=== PATIENT | male | born 1965 | race Caucasian/White ===

== ENCOUNTER 2020-08-21 09:52 | Emergency (ER) | payer BC ==
[2020-08-21] MEDS ORDERED: Famotidine 20 MG/2 ML SDV IVPUSH ONE (09:54)
[2020-08-21] MEDS ORDERED: Aspirin 81 MG Tab.Chew CHEW ONE (09:54)
[2020-08-21] MEDS ORDERED: Metoprolol Tartrate 5 MG/5 ML SDV IVPUSH ONE (09:54)
[2020-08-21] MEDS ORDERED: Ticagrelor 90 MG Tab PO ONE (09:54)
--- NOTE | 2020-08-21 09:54 | EDM.PDOC ---
ED HPI GENERAL MEDICAL PROBLEM - General Chief Complaint: Chest Pain Stated Complaint: chest pain Time Seen by Provider: 08/21/20 09:54 Source of Information: Reports: Patient, Old Records ([facility] chart/EMR) History Limitations: Reports: No Limitations - History of Present Illness INITIAL COMMENTS - FREE TEXT/NARRATIVE: The patient drove himself to the emergency room from work after he started having 10/10 retrosternal chest pressure with radiation to the right shoulder and arm associated with mild to moderate dizziness and diaphoresis with symptoms reoccurring at about 7:30 AM this morning with 2 subsequent episodes, including immediately prior to arrival. Patient has been having similar type symptoms since about 6 PM on 08/17 with patient using OTC NSAIDs and his normal pain medications for the above symptoms. He does deny any excessive NSAID use. The symptoms have been occurring at least 12 times per day lasting for about 30-60 minutes. The patient denies any heart flutter, orthostasis, orthopnea, paresthesias, recent decreased exercise tolerance, or any other anginal-type symptoms. No recent history of abdominal pain, heartburn, nausea, diarrhea, melena, gross hematochezia, or any food intolerance, including fatty foods, etc. with normal bowel movement earlier this morning. He denies any gross hematuria, colic, or the UTI symptoms. The patient denies any chest pain/pressure, heart flutter, dizziness, orthostasis, orthopnea, diaphoresis, paresthesias, recent decreased exercise tolerance, or any other anginal-type symptoms. His chest discomfort did improve to 2/10 in our emergency room prior to initiation of any medical therapy with patient not taking any medications prior to arrival. Onset: Gradual Onset Date: 08/17/20 Onset Time: 18:00 Duration: Intermittent, Improving Location: Reports: Chest, Upper Extremity, Right, Radiates to (As above). Denies: Head, Face, Neck, Abdomen, Back, Pelvis, Upper Extremity, Left Quality: Reports: Pressure Severity: Severe Improves with: Reports: None Worsens with: Reports: None Context: Reports: Other (As above). Denies: Sick Contact, Trauma Associated Symptoms: Reports: Chest Pain, Diaphoresis. Denies: Confusion, Cough, Fever/Chills, Headaches, Loss of Appetite, Malaise, Nausea/Vomiting, Rash, Seizure, Shortness of Breath, Syncope, Weakness Treatments [employer]: Reports: Other Medication(s) (As above but not today, although he did take his morning medications and denies medication noncompliance) - Related Data Allergies Allergy/AdvReac Type Severity Reaction Status Date / Time Iodinated Contrast Media Allergy Vomiting Verified 08/21/20 09:53 Home Meds: Home Meds Omeprazole [Prilosec] 20 mg PO DAILY 04/24/14 [History] QUEtiapine Fumarate [Quetiapine Fumarate] 300 mg PO BEDTIME 04/24/14 [History] Hydrocodone/Acetaminophen [Hydrocodone-Acetamin 7.5-325] 1 tab PO Q4HR PRN 08/21/20 [History] Levothyroxine Sodium [Synthroid] 1 tab PO BEDTIME 08/21/20 [History] atorvaSTATin [Lipitor] 1 tab PO BEDTIME 08/21/20 [History] lisinopriL [Lisinopril] 1 tab PO BEDTIME 08/21/20 [History] traMADol HCl [Tramadol HCl] 1 tab PO Q6HR PRN 08/21/20 [History] Past Medical History Cardiovascular History: Reports: Arrhythmia, High Cholesterol, Hypertension, Other (See Below) Other Cardiovascular History: Dyslipidemia. PVCs. Borderline incomplete right bundle branch block. Mild thoracic outlet syndrome on 01/25/1987. Respiratory History: Reports: Intubation, Previous, Pulmonary Fibrosis. Denies: Asthma, COPD, Intubation, Difficult Gastrointestinal History: Reports: Cholelithiasis, Chronic Constipation, Diverticulosis, GERD, Hepatitis, Helicobacter Pylori, PUD, Other (See Below). D enies: GI Bleed, Pancreatitis Other Gastrointestinal History: Peptic ulcer disease, GERD, and duodenitis with previously treated H. pylori infection after positive finding on 05/25/2002. Umbilical hernia. Moderate LFTs elevation and hyperbilirubinemia on 04/24/2014 with cholecystectomy as below. Genitourinary History: Reports: Hydronephrosis, Renal Calculus, Other (See Below) Other Genitourinary History: Benign bilateral nephrolithiasis including urolithiasis on the right side on 03/01/2002 and on the left side on 08/03/2015 with secondary moderate hydronephrosis. Spermatocele on 03/25/2002. Musculoskeletal History: Reports: Arthritis, Back Pain, Chronic, Fracture, Neck Pain, Chronic, Osteoarthritis, Other (See Below) Other Musculoskeletal History: C5-6 disc prolapse on 02/21/2006 with lumbar spinal fusion as below. Right hand fourth proximal distal phalangeal fracture on 04/20/1996. Right ankle/fibula fracture on 10/10/1989. Psychiatric History: Reports: Addiction, Anxiety, Depression, OCD, Suicidal Ideation, Other (See Below) Other Psychiatric History: Previous history of suicidal ideation with outpatient alcohol treatment. Chronic narcotic and Ultram use secondary to chronic pain syndrome from his neck and back pain. Endocrine/Metabolic History: Reports: Hypokalemia, Hypothyroidism, Other (See Below). Denies: Diabetes, Type I, Diabetes, Type II, Diabetes Mellitus, Type 3c , IDDM, Obesity/BMI 30+ Other Endocrine/Metabolic History: Borderline hyperglycemia. Bilateral gynecomastia since April 1990 with negative biopsies as below. Hematologic History: Reports: Anemia, Other (See Below) Other Hematologic History: Macrocytic anemia. - Infectious Disease History Infectious Disease History: Reports: Chicken Pox, Shingles (Right-sided herpes zoster ophthalmicus in July 2001.). Denies: Novel Coronavirus - Past Surgical History Respiratory Surgical History: Reports: Other (See Below) Other Respiratory Surgeries/Procedures: Transaxillary excision of the first right rib on 06/07/1987. GI Surgical History: Reports: Appendectomy, Cholecystectomy, EGD, Other (See Below) Other GI Surgeries/Procedures: Laparoscopic cholecystectomy in 2013. EGD on 11/13/1999 and 09/03/1994. Appendectomy in April 1999, although the patient denied this on 04/25/2002. Hemorrhoidectomy in 1987 and 08/21/2006. Male Surgical History: Reports: Renal Calculus, Ureteral Stent, Vasectomy, Other (See Below) Other Male Surgeries/Procedures: Multiple bilateral ureteral stone extractions including on the right side on 03/01/2002. Vasectomy in August 1996. Left breast biopsy for benign disease on 05/13/1990 and right breast in July 2006. Neurological Surgical History: Reports: Discectomy, Laminectomy, Lumbar Spine, Spinal Fusion, Other (See Below). Denies: C-Spine, Sacral Spine, Thoracic Spine, Vertebroplasty Other Neurological Surgeries/Procedures: Spinal fusion (ASF/PSF) of L2-L5 on 08/12/2006. Musculoskeletal Surgical History: Reports: ORIF, Other (See Below) Other Musculoskeletal Surgeries/Procedures:: ORIF of the right fibular/ankle fracture in October 11, 1989. ORIF of right fourth finger fracture on 04/20/1996. - Past Imaging History Past Imaging History: Reports: Angiography (08/22/2003.), CAT Scan (CT/arthrogram of the right shoulder and on 04/13/1991. CT of the abdomen and pelvis with contrast on 06/07/2009. CT of the abdomen and pelvis with stone protocol on 03/10/2015 and 10/03/2010.), HIDA Scan (08/11/2006), MRI (MRI of the right shoulder on 03/17/1991. MRI of the lumbar, sacral, and thoracic spines on 03/06/2006. MRI of the lumbar spine on 07/01/2016. MRI of the C-spine on 02/21/2006.), Stress Testing (Dobutamine Cardiolite stress test on 07/24/2006. Cardiolite stress test on 08/11/2003.), Ultrasound (Renal ultrasound on 08/03/2015, 02/22/2015 and 07/23/2011. Gallbladder ultrasound on 04/27/2014, 05/03/2009, and 08/11/1996.), Upper GI X-Ray/Series (01/23/1996) Social & Family History - Family History Cardiac: Reports: Arrhythmia, Bypass, CAD, Hypertension, RI, Other (See Below) Other Cardiac Family History: Father with fatal RI at age 48. Brother with RI in his 40s with CABG required. Another brother with a congenital septal defect with no surgery conducted. Paternal uncles x4 with MIs in their 60s 2 of them fatal in nature. Paternal aunt x4 with RI in their 70s 1 fatal nature. Brother with fatal RI at age 51. Another brother with WPW. Hypertension in mother, father, sister, and brothers x5. Respiratory: Reports: Asthma, Other (See Below) Other Respiratory Family Hisory: Brother with asthma. GI: Reports: Cholelithiasis, Other (See Below) Other GI Family History: Brother with cholelithiasis. : Reports: Renal Calculus, Other (See Below) Other Family History: Urolithiasis and brothers x2. Neurological: Reports: Other (See Below) Other Neurological Family History: Brother with mental deficit/mild mental retardation. Endocrine/Metabolic: Reports: Diabetes, Type I, Diabetes, type II, Hypothyroidism, IDDM, Obesity/MBI 30+, Other (See Below) Other Endocrine/Metabolic Family History: Brother with obesity. Brother with AODM. Mother with IDDM. Maternal niece with type I IDDM. Hypothyroidism in mother, sister, and brothers x4. Oncologic: Reports: Hodgkin's Lymphoma, Other (See Below) Other Oncologic Family History: Brother with Hodgkin's disease in his 30s. - Tobacco Use Tobacco Use Status *Q: Current Every Day Tobacco User Tobacco Use Within Last Twelve Months: Cigarettes Years of Tobacco use: 43 Packs/Tins Daily: 0.5 Packs/Tins Daily Comment: Started smoking at age 12 with maximum use of 1 pack/day. Used Tobacco, but Quit: No Smoking Cessation Information Provided To Patient: No (To be provided by accepting providers) Second Hand Smoke Exposure: No Second Hand Smoke Education Provided: No - Alcohol Use Alcohol Use History: Yes Days Per Week of Alcohol Use: 0 Number of Drinks Per Day Comment: Previous history of alcohol abuse for 5 years with outpatient treatment and no alcohol use since November 1997. Alcohol Use in Last Twelve Months: No - Living Situation & Occupation Living situation: Reports: (07/08/2006, 2 children), with Family (Brother with mental deficit) Occupation: Employed ([employer]) ED ROS GENERAL - Review of Systems Review Of Systems: Comprehensive ROS is negative, except as noted in HPI. ED EXAM, GENERAL - Physical Exam Exam: See Below Exam Limited By: No Limitations General Appearance: Alert, WD/WN, No Apparent Distress, Anxious (Moderate) Eye Exam: Bilateral Eye: EOMI, Normal Inspection (No vertigo or nystagmus), PERRL Ears: Normal External Exam, Normal Canal, Hearing Grossly Normal, Normal TMs Nose: Normal Inspection, Normal Mucosa, No Blood Throat/Mouth: Normal Inspection, Normal Lips, Normal Teeth, Normal Gums, Normal Oropharynx, Normal Voice, No Airway Compromise. No: Dysphagia, Perioral Cyanosis Head: Atraumatic, Normocephalic. No: Facial Swelling, Facial Tenderness, Sinus Tenderness Neck: Normal Inspection, Supple, Non-Tender, Full Range of Motion. No: Carotid Bruit, Lymphadenopathy (L), Lymphadenopathy (R), Thyromegaly Respiratory/Chest: No Respiratory Distress, Lungs Clear, Normal Breath Sounds, No Accessory Muscle Use, Chest Non-Tender. No: Pleural Rub, Retractions Cardiovascular: Normal Peripheral Pulses, Regular Rate, Rhythm, No Edema, No Gallop, No JVD, No Murmur, No Rub. No: Gallop/S3, Gallop/S4, Friction Rub Peripheral Pulses: 2+: Radial (L), Radial (R), Dorsalis Pedis (L), Dorsalis Pedis (R) GI/Abdominal: Normal Bowel Sounds, Soft, Non-Tender, No Organomegaly, No Distention, No Abnormal Bruit, No Mass. No: Guarding (Male) Exam: Deferred Rectal (Males) Exam: Deferred Back Exam: Normal Inspection, Full Range of Motion. No: CVA Tenderness (L), CVA Tenderness (R), Muscle Spasm Extremities: Normal Inspection, Normal Range of Motion, Non-Tender, No Pedal Edema, Normal Capillary Refill. No: Lovely's Sign Neurological: Alert, Oriented, CN II-XII Intact, Normal Cognition, Normal Gait, Normal Reflexes (Negative Babinski's), No Motor/Sensory Deficits Psychiatric: Anxious (Moderate), Depressed Mood (Borderline) Skin Exam: Warm, Dry, Intact, Normal Color, No Rash. No: Diaphoretic, Wound/Incision Lymphatic: No Adenopathy #1 Interpretation EKG Date: 08/21/20 Time: 09:53 Rhythm: NSR Rate (Beats/Min): 87 [place]: Normal (Neutral) P-Wave: Present QRS: Normal (0.08 seconds with resolution of previous borderline incomplete right bundle branch block) ST-T: Normal QT: Normal IN/PQ Interval: 0.14 seconds representing short IN interval with no delta waves noted. Moderate poor R wave progression in the anterior leads. Comparison: Change From Previous EKG (As above with no recent EKG for comparison) EKG Interpretation Comments: 1. No acute ischemic changes 2. Short IN interval #2 Interpretation EKG Date: 08/21/20 Time: 11:10 Rhythm: Other (Sinus bradycardia) Rate (Beats/Min): 58 [place]: Normal (Neutral) P-Wave: Enlarged (New biphasic P waves from earlier EKG today) QRS: Normal ST-T: Other (Downsloping ST depressions with T wave inversions in leads III and beginning in aVF new from earlier EKG at 9:53 AM today as above) IN/PQ Interval: 0.14-second troponin is stable Short IN interval with no delta waves noted. Mild poor wave progression in the anterior leads Comparison: Change From Previous EKG (As above) EKG Interpretation Comments: 1. Beginning inferior wall cardiac ischemia 2. Left atrial enlargement 3. Short IN interval 4. Sinus bradycardia Course - Vital Signs Last Recorded V/S: Last Vital Signs Temp 36.3 C 08/21/20 12:00 Pulse 66 08/21/20 12:00 Resp 17 08/21/20 12:00 BP 149/93 H 08/21/20 12:00 Pulse Ox 100 08/21/20 12:00 Vital Signs - 24 hr 08/21/20 08/21/20 08/21/20 09:52 10:13 10:16 Temperature [ 36.6 C Oral] Temperature [ 36.6 C Temporal] Pulse, Peripheral Pulse, 87 72 Peripheral [ Right Pulse Oximetry] Respiratory 16 18 Rate Blood Pressure 155/106 H Blood Pressure 155/106 H 92/55 L [Right Upper Arm] O2 Sat by Pulse 100 99 Oximetry 08/21/20 08/21/20 08/21/20 10:17 10:18 10:28 Temperature [ Oral] Temperature [ Temporal] Pulse, 79 Peripheral Pulse, 63 62 Peripheral [ Right Pulse Oximetry] Respiratory 19 20 Rate Blood Pressure 155/106 H Blood Pressure 88/58 L 127/80 [Right Upper Arm] O2 Sat by Pulse 99 99 Oximetry 08/21/20 08/21/20 08/21/20 10:32 10:45 11:00 Temperature [ Oral] Temperature [ Temporal] Pulse, Peripheral Pulse, 62 61 60 Peripheral [ Right Pulse Oximetry] Respiratory 20 15 19 Rate Blood Pressure Blood Pressure 127/80 148/92 H 185/99 H [Right Upper Arm] O2 Sat by Pulse 99 100 100 Oximetry 08/21/20 08/21/20 08/21/20 11:15 11:30 11:32 Temperature [ Oral] Temperature [ Temporal] Pulse, Peripheral Pulse, 59 L 66 62 Peripheral [ Right Pulse Oximetry] Respiratory 18 17 17 Rate Blood Pressure Blood Pressure 203/106 H 196/89 H 159/100 H [Right Upper Arm] O2 Sat by Pulse 100 100 100 Oximetry 08/21/20 12:00 Temperature [ Oral] Temperature [ 36.3 C Temporal] Pulse, Peripheral Pulse, 66 Peripheral [ Right Pulse Oximetry] Respiratory 17 Rate Blood Pressure Blood Pressure 149/93 H [Right Upper Arm] O2 Sat by Pulse 100 Oximetry - Orders/Labs/Meds Orders: Active Orders 24 hr Category Date Time Status Cardiac Monitoring [RC] . DIRECTED Care 08/21/20 09:54 Active EKG Documentation Completion [RC] ASDIRECTED Care 08/21/20 09:54 Active EKG Documentation Completion [RC] ASDIRECTED Care 08/21/20 11:06 Active Oxygen Therapy, ED [RC] CONTINUOUS Care 08/21/20 09:54 Active Peripheral IV Care [RC] . DIRECTED Care 08/21/20 09:54 Active Peripheral IV Care [RC] . DIRECTED Care 08/21/20 11:09 Active Pulse Oximetry [RC] CONTINUOUS Care 08/21/20 09:54 Active Up With Assistance [RC] PFP Care 08/21/20 09:54 Active Vital Signs [RC] PFP Care 08/21/20 09:54 Active Nothing per Oral Now Diet [DIET] Diet 08/21/20 Breakfast Active Chest 1V Frontal [CR] Stat Exams 08/21/20 09:54 Taken Heparin Sodium/0.45% NaCl [Heparin 25,000 Units in 1/2 Med 08/21/20 11:15 Active NS 500 ML] 500 ml IV TITRATE Nitroglycerin [Nitrostat] Med 08/21/20 09:55 Stat 0.4 mg SL ONETIME STA Nitroglycerin/D5W [Nitroglycerin 25 MG/D5W 250 ML] Med 08/21/20 11:30 Active 25 mg in 250 ml IV TITRATE Sodium Chloride 0.9% [Normal Saline] 1,000 ml Med 08/21/20 11:15 Active IV ASDIRECTED Sodium Chloride 0.9% [Saline Flush] Med 08/21/20 09:54 Active 10 ml FLUSH ASDIRECTED PRN Sodium Chloride 0.9% [Saline Flush] Med 08/21/20 11:09 Active 10 ml FLUSH ASDIRECTED PRN Obtain Past Medical Record [OM.PC] Urgent Oth 08/21/20 09:54 Active Peripheral IV Insertion Adult [OM.PC] Routine Oth 08/21/20 11:09 Ordered Peripheral IV Insertion Adult [OM.PC] Stat Oth 03/29/21 09:54 Ordered Resuscitation Status Stat Resus Stat 08/21/20 09:54 Ordered Medication Orders Heparin Sodium/Sodium Chloride (Heparin 25,000 Units In 1/2 Ns 500 Ml) 500 mls @ 21.864 mls/hr IV TITRATE ALPHONSE; Protocol Last Admin: 08/21/20 11:36 Dose: 12 units/kg/hr, 21.864 mls/hr Documented by: HARSHAD Cosigned by: NELDA Sodium Chloride (Normal Saline) 1,000 mls @ 30 mls/hr IV ASDIRECTED ALPHONSE Nitroglycerin/Dextrose (Nitroglycerin 25 Mg/D5w 250 Ml) 25 mg in 250 mls @ 6 mls/hr IV TITRATE ALPHONSE Last Admin: 08/21/20 11:26 Dose: 10 mcg/min, 6 mls/hr Documented by: HARSHAD Nitroglycerin (Nitroglycerin 0.4 Mg Tab.Sl) 0.4 mg SL ONETIME STA Stop: 08/22/20 09:56 Last Admin: 08/21/20 10:16 Dose: 0.4 mg Documented by: HARSHAD Sodium Chloride (Sodium Chloride 0.9% 10 Ml Syringe) 10 ml FLUSH ASDIRECTED PRN PRN Reason: Keep Vein Open Last Admin: 08/21/20 10:51 Dose: 10 ml Documented by: Admin: 08/21/20 10:44 Dose: 10 ml Documented by: Admin: 08/21/20 10:20 Dose: 10 ml Documented by: Admin: 08/21/20 10:19 Dose: 10 ml Documented by: HARSHAD Sodium Chloride (Sodium Chloride 0.9% 10 Ml Syringe) 10 ml FLUSH ASDIRECTED PRN PRN Reason: Keep Vein Open Labs: Laboratory Tests 08/21/20 08/21/20 08/21/20 Range/Units 10:10 10:10 10:10 WBC 6.2 (4.0-10.2) K/uL RBC 3.81 L (4.33-5.41) M/uL Hgb 13.4 (13.1-16.8) g/dL Hct 39.1 (39.0-49.0) % MCV 102.6 H (84.0-98.0) fL MCH 35.2 H (28.2-33.3) pg MCHC 34.3 (31.7-36.0) g/dL RDW 13.0 (11.2-14.1) % Plt Count 223 (150-350) K/uL Neut % (Auto) 60.8 (45.0-80.0) % Lymph % (Auto) 29.8 (10.0-50.0) % [place] % (Auto) 5.7 (2.0-14.0) % Eos % (Auto) 3.4 (0.0-5.0) % Baso % (Auto) 0.3 (0.0-2.0) % Neut # (Auto) 3.75 (1.40-7.00) K/uL Lymph # (Auto) 1.84 (0.50-3.50) K/uL [place] # (Auto) 0.35 (0.00-1.00) K/uL Eos # (Auto) 0.21 (0.00-0.50) K/uL Baso # (Auto) 0.02 (0.00-0.20) K/uL PT 9.7 (9.5-12.0) SEC INR 1.0 APTT 23.4 L (24.5-32.8) SEC D-Dimer, Quantitative < 100 (0-400) ng/mL Sodium (136-145) mmol/L Potassium (3.5-5.1) mmol/L Chloride (98-107) mmol/L Carbon Dioxide (21.0-32.0) mmol/L BUN (7-18) mg/dL Creatinine (0.51-1.17) mg/dL Est Cr Clr Drug Dosing Estimated GFR (MDRD) mL/min Glucose (70-99) mg/dL Lactic Acid (0.4-2.0) mmol/L Uric Acid (2.6-7.2) mg/dL Calcium (8.5-10.1) mg/dL Magnesium (1.8-2.4) mg/dL Total Bilirubin (0.2-1.0) mg/dL AST (15-37) U/L ALT (12-78) U/L Alkaline Phosphatase (46-116) IU/L Creatine Kinase (26-308) U/L Creatine Kinase Index (0.0-2.5) % CK-MB (CK-2) (0.00-3.60) ng/mL Troponin I (0.000-0.056) ng/mL NT-Pro-B Natriuret Pep (0-125) pg/mL Total Protein (6.4-8.2) g/dL Albumin (3.4-5.0) g/dL TSH, Ultra Sensitive (0.358-3.740) mIU/mL SARS-CoV-2 RNA (NANCY) (NEGATIVE) 08/21/20 08/21/20 08/21/20 Range/Units 10:10 10:10 10:10 WBC (4.0-10.2) K/uL RBC (4.33-5.41) M/uL Hgb (13.1-16.8) g/dL Hct (39.0-49.0) % MCV (84.0-98.0) fL MCH (28.2-33.3) pg MCHC (31.7-36.0) g/dL RDW (11.2-14.1) % Plt Count (150-350) K/uL Neut % (Auto) (45.0-80.0) % Lymph % (Auto) (10.0-50.0) % [place] % (Auto) (2.0-14.0) % Eos % (Auto) (0.0-5.0) % Baso % (Auto) (0.0-2.0) % Neut # (Auto) (1.40-7.00) K/uL Lymph # (Auto) (0.50-3.50) K/uL [place] # (Auto) (0.00-1.00) K/uL Eos # (Auto) (0.00-0.50) K/uL Baso # (Auto) (0.00-0.20) K/uL PT (9.5-12.0) SEC INR APTT (24.5-32.8) SEC D-Dimer, Quantitative (0-400) ng/mL Sodium 140 (136-145) mmol/L Potassium 3.9 (3.5-5.1) mmol/L Chloride 103 (98-107) mmol/L Carbon Dioxide 26.0 (21.0-32.0) mmol/L BUN 16 (7-18) mg/dL Creatinine 1.13 (0.51-1.17) mg/dL Est Cr Clr Drug Dosing TNP Estimated GFR (MDRD) > 60 mL/min Glucose 158 H (70-99) mg/dL Lactic Acid 1.9 (0.4-2.0) mmol/L Uric Acid 5.2 (2.6-7.2) mg/dL Calcium 9.0 (8.5-10.1) mg/dL Magnesium 1.6 L (1.8-2.4) mg/dL Total Bilirubin 0.4 (0.2-1.0) mg/dL AST 20 (15-37) U/L ALT 27 (12-78) U/L Alkaline Phosphatase 73 (46-116) IU/L Creatine Kinase 128 (26-308) U/L Creatine Kinase Index 2.0 (0.0-2.5) % CK-MB (CK-2) 2.60 (0.00-3.60) ng/mL Troponin I 0.071 H* (0.000-0.056) ng/mL NT-Pro-B Natriuret Pep 143 H (0-125) pg/mL Total Protein 7.1 (6.4-8.2) g/dL Albumin 3.8 (3.4-5.0) g/dL TSH, Ultra Sensitive 4.188 H (0.358-3.740) mIU/mL SARS-CoV-2 RNA (NANCY) Negative (NEGATIVE) Meds: Medications Generic Name Dose Route Start Last Admin Trade Name Buck PRN Reason Stop Dose Admin Heparin Sodium/Sodium Chloride 500 mls @ 21.864 mls/hr 08/21/20 11:15 08/21/20 11:36 Heparin 25,000 Units In 1/2 Ns 500 Ml IV 12 units/kg/hr TITRATE ALPHONSE 21.864 mls/hr Administration Protocol 12 UNITS/KG/HR Sodium Chloride 1,000 mls @ 30 mls/hr 08/21/20 11:15 Normal Saline IV ASDIRECTED ALPHONSE Nitroglycerin/Dextrose 25 mg in 250 mls @ 6 mls/hr 08/21/20 11:30 08/21/20 11:26 Nitroglycerin 25 Mg/D5w 250 Ml IV 10 mcg/min TITRATE ALPHONSE 6 mls/hr Administration 10 MCG/MIN Nitroglycerin 0.4 mg 08/21/20 09:55 08/21/20 10:16 Nitroglycerin 0.4 Mg Tab.Sl SL 08/22/20 09:56 0.4 mg ONETIME STA Administration Sodium Chloride 10 ml 08/21/20 09:54 08/21/20 10:51 Sodium Chloride 0.9% 10 Ml Syringe FLUSH 10 ml ASDIRECTED PRN Administration Keep Vein Open Sodium Chloride 10 ml 08/21/20 11:09 Sodium Chloride 0.9% 10 Ml Syringe FLUSH ASDIRECTED PRN Keep Vein Open Discontinued Medications Generic Name Dose Route Start Last Admin Trade Name Freq PRN Reason Stop Dose Admin Aspirin 324 mg 08/21/20 09:54 08/21/20 10:15 Aspirin 81 Mg Tab.Chew CHEW 08/21/20 09:55 324 mg ONETIME ONE Administration Diazepam 2.5 mg 08/21/20 10:26 08/21/20 10:42 Diazepam 10 Mg/2 Ml Syringe IVPUSH 08/21/20 10:27 2.5 mg ONETIME ONE Administration Famotidine 40 mg 08/21/20 09:54 08/21/20 10:18 Famotidine 20 Mg/2 Ml Sdv IVPUSH 08/21/20 09:55 40 mg ONETIME ONE Administration Heparin Sodium (Porcine) 4,000 units 08/21/20 11:07 08/21/20 11:16 Heparin Sodium 5,000 Units/Ml Vial IVPUSH 08/21/20 11:08 4,000 units ONETIME ONE Administration Lactated Ringer's 1,000 mls @ 999 mls/hr 08/21/20 10:25 08/21/20 10:32 Ringers, Lactated IV 08/21/20 11:25 999 mls/hr .BOLUS ONE Administration Metoprolol Tartrate 2.5 mg 08/21/20 09:54 08/21/20 10:18 Metoprolol Tartrate 5 Mg/5 Ml Sdv IVPUSH 08/21/20 09:55 2.5 mg ONETIME ONE Administration Morphine Sulfate 1 mg 08/21/20 10:26 08/21/20 10:42 Morphine 2 Mg/Ml Syringe IVPUSH 08/21/20 10:27 1 mg ONETIME ONE Administration Morphine Sulfate 2 mg 08/21/20 11:09 08/21/20 11:16 Morphine 2 Mg/Ml Syringe IVPUSH 08/21/20 11:10 2 mg ONETIME ONE Administration Ondansetron HCl 4 mg 08/21/20 10:26 08/21/20 10:42 Ondansetron 4 Mg/2 Ml Sdv IVPUSH 08/21/20 10:27 4 mg ONETIME ONE Administration Ticagrelor 180 mg 08/21/20 09:54 08/21/20 10:17 Ticagrelor 90 Mg Tab PO 08/21/20 09:55 180 mg ONETIME ONE Administration - Radiology Interpretation Free Text/Narrative:: cardiac monitor initially showed normal sinus rhythm with heart rate in the 80s with no ectopy or arrhythmia. Improved heart rate in the 60s to 70s after IV Lopressor therapy with no ectopy or arrhythmia Chest x-ray, portable, shows mild pulmonary obstructive disease with bilateral lobe atelectasis with no evidence of cardiomegaly, CHF, pulmonary infiltrates, pneumothorax, etc. Departure - Departure Time of Disposition: 12:18 Disposition: DC/Tfer to Acute Hospital 02 Reason for Transfer *Q: Other (Cardiology consultation by accepting providers) Condition: Fair Clinical Impression: Non-STEMI (non-ST elevated myocardial infarction), Shortened IN interval, PVCs (premature ventricular contractions), Dyslipidemia, Macrocytic anemia, Mixed anxiety depressive disorder, Hypothyroidism (acquired), Hypomagnesemia, Peptic reflux disease, Tobacco abuse counseling Hypertension Qualifiers: Hypertension type: essential hypertension Qualified Code(s): I10 - Essential (primary) hypertension Osteoarthritis Qualifiers: Osteoarthritis location: multiple joints Osteoarthritis type: primary Qualified Code(s): M89.49 - Other hypertrophic osteoarthropathy, multiple sites Referrals: Jennifer [place] PA-C [Primary Care Provider] - Forms: ED Department Discharge, Interfacility Transfer EMTALA Additional Instructions: Ambulance transfer to [place] as below Sepsis Event Note (ED) - Focused Exam Vital Signs: Vital Signs Temp Temp Pulse Pulse Resp BP BP 08/21/20 12:00 36.3 C 66 17 149/93 H 08/21/20 11:32 62 17 159/100 H 08/21/20 11:30 66 17 196/89 H 08/21/20 11:15 59 L 18 203/106 H 08/21/20 11:00 60 19 185/99 H 08/21/20 10:45 61 15 148/92 H 08/21/20 10:32 62 20 127/80 08/21/20 10:28 62 20 127/80 08/21/20 10:18 79 155/106 H 08/21/20 10:17 63 19 88/58 L 08/21/20 10:16 155/106 H 08/21/20 10:13 72 18 92/55 L 08/21/20 09:52 36.6 C 36.6 C 87 16 155/106 H Pulse Ox 08/21/20 12:00 100 08/21/20 11:32 100 08/21/20 11:30 100 08/21/20 11:15 100 08/21/20 11:00 100 08/21/20 10:45 100 08/21/20 10:32 99 08/21/20 10:28 99 08/21/20 10:18 08/21/20 10:17 99 08/21/20 10:16 08/21/20 10:13 99 08/21/20 09:52 100 - Problem List & Annotations (1) Non-STEMI (non-ST elevated myocardial infarction) SNOMED Code(s): 24919712 Code(s): I21.4 - NON-ST ELEVATION (NSTEMI) MYOCARDIAL INFARCTION Status: Acute Priority: High Onset Date: 08/21/20 Annotation/Comment:: Telephone consultation at 11:[address] Joshua, emergency room physician/hospitalist at [facility] in [place], who does accept the patient for direct admission, with no further treatment recommendations given. Ambulance transfer with radio interference trouble shooter accompaniment. Note initial unstable angina and uncontrolled hypertension in our emergency room, however patient was chest pain-free with significantly improved blood pressures and stable clinical exam and vitals prior to transfer. Chest pain protocol was initiated immediately upon patient's arrival to the emergency room. Secondary to unstable angina EKG was repeated indicating newly developing inferior wall non-STEMI with initial normal EKG. Note positive troponin I with only minimally elevated BNP and no clinical evidence of significant CHF. Note aggressive medical therapy required in our facility including initiation of IV nitroglycerin, which he did tolerate well, and IV sodium heparin infusion as per non-STEMI protocol. [place] work excuse to be faxed to his employer with a blank [employer] work excuse form to be faxed to [facility] in [place]. (2) Hypertension SNOMED Code(s): 66241975 Code(s): I10 - ESSENTIAL (PRIMARY) HYPERTENSION Status: Chronic Priority: High Annotation/Comment:: Patient very hypertensive upon arrival to our emergency room likely secondary to threatening non-STEMI. Note hypotensive episode with systolic blood pressures in the 80s after 1 sublingual nitroglycerin tablet and 2.5 mg of Lopressor were given as per chest pain protocol. Patient was bolused with 1 L of lactated Ringer's with overall excellent results, however the patient became hypotensive once again shortly thereafter. Note that the initial dose of IV morphine was held until patient's hypotension improved with patient tolerating this medication well despite previous history of possible distant pruritus without rash with this medication. Chest pain completely resolved after second dose of IV morphine at 2 mg, which the patient still tolerated well. Blood pressure significantly improved after initiation of IV nitroglycerin infusion as above. Qualifiers: Hypertension type: essential hypertension Qualified Code(s): I10 - Essential (primary) hypertension (3) Dyslipidemia SNOMED Code(s): 136753730 Code(s): E78.5 - HYPERLIPIDEMIA, UNSPECIFIED Status: Chronic Priority: Medium Annotation/Comment:: Currently under therapy. Note additional history of borderline hyperglycemia. Consider of lipid profile and glycosylated hemoglobin by accepting providers. (4) Hypomagnesemia SNOMED Code(s): 845640899 Code(s): E83.42 - HYPOMAGNESEMIA Status: Acute Priority: Medium Onset Date: 08/21/20 Annotation/Comment:: Consider correction by accepting providers. (5) Hypothyroidism (acquired) SNOMED Code(s): 849225601 Code(s): E03.9 - HYPOTHYROIDISM, UNSPECIFIED Status: Chronic Priority: Medium Annotation/Comment:: Currently under therapy with mildly increased TSH today. Patient denies medication noncompliance. Further dosage adjustment by accepting providers. (6) Macrocytic anemia SNOMED Code(s): 95492996 Code(s): D53.9 - NUTRITIONAL ANEMIA, UNSPECIFIED Status: Chronic Priority: Medium Annotation/Comment:: Long history. No evidence of current alcohol use with history of alcohol abuse in the past. Consider work-up by accepting providers, including vitamin B12 level, thiamine level, folic acid level, etc. (7) Mixed anxiety depressive disorder SNOMED Code(s): 305704249 Code(s): F41.8 - OTHER SPECIFIED ANXIETY DISORDERS Status: Chronic Priority: Medium Annotation/Comment:: Moderate control based on today's evaluation. Note distant history of alcohol abuse as above with no current intoxication. Emotional support was provided. Continue to observe closely by accepting and regular providers. (8) Osteoarthritis SNOMED Code(s): 133443358 Code(s): M19.90 - UNSPECIFIED OSTEOARTHRITIS, UNSPECIFIED SITE Status: Chronic Priority: Medium Annotation/Comment:: Stable by history with chronic narcotic medication use, including earlier this morning. Note chronic neck and low back pain. Qualifiers: Osteoarthritis location: multiple joints Osteoarthritis type: primary Qualified Code(s): M89.49 - Other hypertrophic osteoarthropathy, multiple sites (9) PVCs (premature ventricular contractions) SNOMED Code(s): 90807850 Code(s): I49.3 - VENTRICULAR PREMATURE DEPOLARIZATION Status: Chronic Priority: Medium Annotation/Comment:: Distant history of PVCs and incomplete right bundle branch block, which were not present during today's evaluation. No significant arrhythmia noted in today's evaluation. Note short IN interval with no delta waves, however positive family history of WPW syndrome as above. (10) Shortened IN interval SNOMED Code(s): 45212507 Code(s): R94.31 - ABNORMAL ELECTROCARDIOGRAM [ECG] [EKG] Status: Acute Priority: Medium Onset Date: 08/21/20 Annotation/Comment:: As above (11) Peptic reflux disease SNOMED Code(s): 450917729 Code(s): K21.9 - GASTRO-ESOPHAGEAL REFLUX DISEASE WITHOUT ESOPHAGITIS Status: Chronic Priority: Medium Annotation/Comment:: No current abdominal complaints despite recent NSAID use. High-dose IV Pepcid was given as GI prophylaxis with no evidence of acute GI bleed. (12) Tobacco abuse counseling SNOMED Code(s): 098251379, 673522493, 417852434 Code(s): Z71.6 - TOBACCO ABUSE COUNSELING Status: Chronic Priority: Medium Annotation/Comment:: Tobacco cessation once again strongly encouraged with the patient to be provided tobacco cessation information by accepting providers. - Problem List Review Problem List Initiated/Reviewed/Updated: Yes - My Orders Last 24 Hours: My Active Orders 08/21/20 Breakfast Nothing per Oral Now Diet [DIET] 08/21/20 09:54 Cardiac Monitoring [RC] . DIRECTED EKG Documentation Completion [RC] ASDIRECTED Oxygen Therapy, ED [RC] CONTINUOUS Peripheral IV Care [RC] . DIRECTED Pulse Oximetry [RC] CONTINUOUS Up With Assistance [RC] PFP Vital Signs [RC] PFP Chest 1V Frontal [CR] Stat Sodium Chloride 0.9% [Saline Flush] 10 ml FLUSH ASDIRECTED PRN Obtain Past Medical Record [OM.PC] Urgent Peripheral IV Insertion Adult [OM.PC] Stat Resuscitation Status Stat 08/21/20 09:55 Nitroglycerin [Nitrostat] 0.4 mg SL ONETIME STA 08/21/20 11:06 EKG Documentation Completion [RC] ASDIRECTED 08/21/20 11:09 Peripheral IV Care [RC] . DIRECTED Sodium Chloride 0.9% [Saline Flush] 10 ml FLUSH ASDIRECTED PRN Peripheral IV Insertion Adult [OM.PC] Routine 08/21/20 11:15 Heparin Sodium/0.45% NaCl [Heparin 25,000 Units in 1/2 NS 500 ML] 500 ml IV TITRATE Sodium Chloride 0.9% [Normal Saline] 1,000 ml IV ASDIRECTED 08/21/20 11:30 Nitroglycerin/D5W [Nitroglycerin 25 MG/D5W 250 ML] 25 mg in 250 ml IV TITRATE - Assessment/Plan Last 24 Hours: My Active Orders 08/21/20 Breakfast Nothing per Oral Now Diet [DIET] 08/21/20 09:54 Cardiac Monitoring [RC] . DIRECTED EKG Documentation Completion [RC] ASDIRECTED Oxygen Therapy, ED [RC] CONTINUOUS Peripheral IV Care [RC] . DIRECTED Pulse Oximetry [RC] CONTINUOUS Up With Assistance [RC] PFP Vital Signs [RC] PFP Chest 1V Frontal [CR] Stat Sodium Chloride 0.9% [Saline Flush] 10 ml FLUSH ASDIRECTED PRN Obtain Past Medical Record [OM.PC] Urgent Peripheral IV Insertion Adult [OM.PC] Stat Resuscitation Status Stat 08/21/20 09:55 Nitroglycerin [Nitrostat] 0.4 mg SL ONETIME STA 08/21/20 11:06 EKG Documentation Completion [RC] ASDIRECTED 08/21/20 11:09 Peripheral IV Care [RC] . DIRECTED Sodium Chloride 0.9% [Saline Flush] 10 ml FLUSH ASDIRECTED PRN Peripheral IV Insertion Adult [OM.PC] Routine 08/21/20 11:15 Heparin Sodium/0.45% NaCl [Heparin 25,000 Units in 1/2 NS 500 ML] 500 ml IV TITRATE Sodium Chloride 0.9% [Normal Saline] 1,000 ml IV ASDIRECTED 08/21/20 11:30 Nitroglycerin/D5W [Nitroglycerin 25 MG/D5W 250 ML] 25 mg in 250 ml IV TITRATE Assessment:: As above Plan: As above. Extensive precautions were given to the patient, who is in agreement with the treatment plan. Ambulance transfer to [facility] with radio interference trouble shooter accompaniment as above.
[2020-08-21] MEDS ORDERED: Nitroglycerin 0.4 MG Tab.SL SL STA (09:55)
[2020-08-21] MEDS: Sodium Chloride 0.9% 10 ML Syringe FLUSH PRN ×4 (10:19→10:51)
[2020-08-21] MEDS ORDERED: Lactated Ringers 1,000 ML IV ONE (10:25)
[2020-08-21] MEDS ORDERED: Ondansetron 4 MG/2 ML SDV IVPUSH ONE (10:26)
[2020-08-21] MEDS ORDERED: Morphine 2 MG/ML SYRINGE IVPUSH ONE ×2 (10:26→11:09)
[2020-08-21 10:33] LABS: PTT,PARTIAL THROMBOPLSTIN TIME 23.4 SEC (24.5-32.8)
[2020-08-21 10:49] LABS: CHLORIDE,CL 103 mmol/L (98-107); SODIUM,NA 140 mmol/L (136-145)
[2020-08-21] MEDS ORDERED: Heparin Sodium 5,000 Units/ML Vial IVPUSH ONE (11:07)
[2020-08-21] MEDS ORDERED: Sodium Chloride 0.9% 10 ML Syringe FLUSH PRN (11:09)
[2020-08-21] MEDS ORDERED: Heparin Sodium/0.45% NaCl 500 ML IV SCH (11:15)
[2020-08-21] MEDS ORDERED: Sodium Chloride 0.9% 1,000 ML IV SCH (11:15)
[2020-08-21] MEDS ORDERED: Nitroglycerin/D5W 25 MG/250 ML BOTTLE IV SCH (11:30)
--- OUTSIDE RECORDS SUMMARY | 2020-08-23 07:47 | XMSREPORT ---
:1965 Author Organization [facility] and [facility] s Address [address] [place] [address] [address] [place] [address] Care Team Providers Name Role Phone Maia Blackburn PA-C Primary Care Provider Maia Blackburn PA-C Attributed Provider Reason for Referral Comprehensive Primary Care Plus (Routine) Status Reason Specialty Diagnoses / Referred By Referred To Contact Procedures Contact New Request CARDIOLOGY Diagnoses NSTEMI (non-ST elevated myocardial infarction) (HCC) Spontaneous dissection of coronary artery Willy Prakash MD [facility] [address] [address] [place], [place] Phone: [phone] Fax: Scheduling Instructions This is an electronic referral. Reason for Visit Auth/Cert Status Reason Specialty Diagnoses / Procedures Referred By Boyd ontact Referred To Contact Encounter Details Date Type Department Care Team Description 08/21/2020 - Hospital Encounter [facility] Kris Joshua MD [address] [place] [address] [phone] NSTEMI (non-ST 08/22/2020 [facility] Willy Prakash MD [address] [place], [place] [id number] elevated myocardial [address] Provider, Generic Hosp Procedure infarction) (HCC) [place] [address] Allergies Active Allergy Reactions Severity Noted Date Comments Diagnostic X-Ray Nausea and Vomiting High 03/07/2015 IVP DYE - PT STATES Materials UNABLE TO COMPL ETE THESE TEST documented as of this encounter (statuses as of 08/22/2020) Medications Medication Sig Dispensed Refills Start Date End Date Status omeprazole (PRILOSEC) TAKE 1 CAPSULE 90 capsule 2 06/12/2018 Active 20 mg (20 MG) BY MOUTH capsuleIndications: 2 TIMES A DAY Irritable bowel NEEDED syndrome with both constipation and diarrhea Additional Information Patient taking differently: 20 mg Oral Every morning, TAKE 1 CAPSULE (20 MG) BY MOUTH 2 TIMES A DAY NEEDED08/21/20: Patient states he takes 20 mg in the AM & then an additional 20 mg as needed lat er in the day, Informant: Se lf, Reported on 08/21/2020 9:17 PM QUEtiapine (SEROQUEL) 300 mg TAKE 1 TABLET (300 180 tablet 4 0 09/24/2019 Active tabletIndications: Recurrent MG TOTAL) BY MOUTH major depressive disorder, in EVERY NIGHT AT full remission (HCC) BEDTIME Additional Information Patient taking differently: 300 mg Oral Bedtime, TAKE 1 TABLET (300 MG TOTAL) BY MOUTH EVERY NIGHT AT BEDTIME, Informant: Self, Reported on 08/21/2020 9:17 PM amLODIPine (NORVASC) 5 mg TAKE 1 TABLET (5 MG) 180 tablet 0 Active tabletIndications: Essential BY MOUTH 2 TIMES A hypertension DAY FILL AT [facility] Additional Information Patient taking differently: 5 mg Oral Bedtime, Informant: Self, Reported on 08/21/2020 9:17 PM metoprolol succinate (TOPROL TAKE 1 TABLET BY 180 tablet 0 Active XL) 50 mg SR tablet (24 MOUTH TWICE DAILY hr)Indications: Essential hypertension Additional Information Patient taking differently: 50 mg Oral DAILY, (No instructions reported), Informant: Self, Reported on 08/21/2020 9:17 PM lisinopril (PRINIVIL, ZESTRIL) 10 TAKE 1 TABLET (10 90 tablet 0 06/14/2020 Active mg tabletIndications: Essential MG) BY MOUTH 1 TIME hypertension PER DAY atorvaSTATin (LIPITOR) 40 mg TAKE 1 TABLET (40 90 tablet 3 Active tabletIndications: Dyslipidemia MG) BY MOUTH 1 TIME PER DAY Additional Information Patient taking differently: 40 mg Oral Bedtime, TAKE 1 TABLET (40 MG) BY MOUTH 1 TIME PER DAY, Informant: Self, Reported on 08/21/2020 9:17 PM levothyroxine 175 mcg TAKE 1 TABLET (175 90 tablet 1 Active tabletIndications: Hypothyroidism MCG) BY MOUTH 1 TIME (acquired) PER DAY Additional Information Patient taking differently: 175 mcg Oral Bedtime, Informant: Self, Reported on 08/21/2020 9:17 PM traMADol (ULTRAM) 50 mg TAKE 1 TABLET (50 30 tablet 1 07/26/19 Active tabletIndications: Lumbar MG) BY MOUTH 1 TIME degenerative disc disease A DAY NEEDED FOR SEVERE PAIN *MUST LAST 30 DAYS* Additional Information Patient taking differently: 50 mg Oral One time a day prn, moderate pain, TAKE 1 TABLET (50 MG) BY MOUTH 1 TIME A DAY NEEDED FOR SEVERE PAIN *MUST LAST 30 DAYS*, Informant: Self, Reported on 08/21/2020 9:17 PM HYDROcodone-acetaminophen TAKE 1 60 tablet 0 07/25/2020 Active (NORCO) 7.5-325 mg TABLET BY tabletIndications: Lumbar MOUTH EVERY degenerative disc disease 12 HOURS NEEDED FOR SEVERE PAIN aspirin 81 mg chewable Take 1 30 tablet 0 08/23/2020 Active tabletIndications: NSTEMI tablet (81 (non-ST elevated myocardial mg) by mouth infarction) ([facility]), 1 time per Spontaneous dissection of day coronary artery nitroglycerin (NITROSTAT) 0.4 Dissolve 1 25 tablet 0 1 04/0 Active mg sublingual tablet (0.4 09/12 tabletIndications: NSTEMI mg) under 22 (non-ST elevated myocardial the tongue infarction) ([facility]), Every 5 Spontaneous dissection of minutes as coronary artery needed for chest pain May repeat every 5 minutes for a total of 3 doses. ticagrelor (BRILINTA) 90 mg Take 1 60 tablet 11 08/22/2020 0 4/0 Active tabletIndications: NSTEMI tablet (90 4/2 0 (non-ST elevated myocardial mg) by mouth 22 infarction) ([facility]), 2 times a Spontaneous dissection of day coronary artery ticagrelor (BRILINTA) 90 mg Take 1 60 tablet 0 08/22/2020 0 3/3 Discontinued tabletIndications: NSTEMI tablet (90 0/2 0 (Stop Taking at (non-ST elevated myocardial mg) by mouth 21 Discharge) infarction) ([facility]) 2 times a day ticagrelor (BRILINTA) 60 mg Take 1.5 90 tablet 0 08/22/2020 0 3/3 Discontinued tabletIndications: NSTEMI tablets (90 0/ 20 (Stop Taking at (non-ST elevated myocardial mg) by mouth 21 Discharge) infarction) ([facility]) 2 times a day documented as of this encounter (statuses as of 08/22/2020) Active Problems Problem Noted Date Spontaneous dissection of coronary artery 08/22/2020 Overview: D1 brand of LAD; Too small for intervent ion during angiogram on 08/21/20 NSTEMI (non-ST elevated myocardial infarction) 021 Other chest pain 08/21/2020 Macrocytic anemia 09/01/2018 Pain management contract signed 08/01/2017 Overview: A pain management agreement is on file for this patient. Before prescribing any opioids for this patient, please contact the electrical electronics technician staff at [address] [facility] [phone] . 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 03/07/2015 documented as of this encounter (statuses as of 08/22/2020) Immunizations Name Administration Dates Next Due Influenza Trivalent w/preserv 05/25/2002 Pneumococcal Polysaccharide PPSV23 08/24/2007, 05/25/2002 TD(adult)adsorbed 07/31/2006 TD,not adsorbed 07/31/2006 TDAP 12/16/2018 pneumovax 08/24/2007, 05/25/2002 documented as of this encounter Social History Tobacco Use Types Packs/Day Years Used Date Current Every Day Smoker Cigarettes 0.5 Smokeless Tobacco: Never Used Tobacco Cessation: Ready to Quit: No; Co unseling Given: No Alcohol Use Drinks/Week oz/Week Comments No Food Insecurity Answer Date Recorded Within the past 12 months, you worried that your food would Never true 04/21/2020 run out before you got money to buy more. Within the past 12 months, the food you bought just didn't N ever true 04/21/2020 last and you didn't have money to get more. Sex Assigned at Date Recorded Not on file documented as of this encounter Last Filed Vital Signs Vital Sign Reading Time Taken Comments Blood Pressure 119/85 08/22/2020 1:00 PM CDT Pulse 60 08/22/2020 1:00 PM CDT Temperature 36.9 C (98.5 F) 08/22/2020 12:00 PM CDT Respiratory Rate - - Oxygen Saturation 97% 08/22/2020 1:00 PM CDT Inhaled Oxygen Concentration - - Weight 88.8 kg (195 lb 12.3 oz) 08/21/2020 1:00 PM CDT Height 185.4 cm (6' 1") 08/21/2020 1:00 PM CDT Body Mass Index 25.83 08/21/2020 1:00 PM CDT documented in this encounter Functional Status Functional Status Response Date of Assessment Is the person deaf or does he/she have serious difficulty No 03/28/2015 hearing? Is this person blind or does he/she have difficulty No 03/28/2015 seeing even when wearing glasses? Do you have difficulty with walking, balance, climbing No 11/25/2017 stairs, or had a fall in the last 3 months? Does the patient have difficulty dressing or bathing? No 03/28/2015 Because of a physical, mental, or emotional condition; No 03/28/2015 does this person have difficulty doing errands alone such as visiting a doctor's office or shopping? Cognitive Status Response Date of Assessment Because of a physical, mental, or emotional condition; No 03/28/2015 does this person have serious difficulty concentrating, remembering, or making decisions? documented as of this encounter Discharge Summaries Not on filedocumented in this encounter Medications at Time of Discharge Medication Sig Dispensed Refills Start Date End Date aspirin 81 mg chewable Take 1 tablet (81 30 tablet 0 2020 tabletIndications: NSTEMI mg) by mouth 1 time (non-ST elevated per day myocardial infarction) (HCC), Spontaneous dissection of coronary artery nitroglycerin (NITROSTAT) Dissolve 1 tablet 25 tablet 0 08/27/2021 0.4 mg sublingual (0.4 mg) under the tabletIndications: NSTEMI tongue Every 5 (non-ST elevated minutes as needed myocardial infarction) for chest pain May (HCC), Spontaneous repeat every 5 dissection of coronary minutes for a total artery of 3 doses. ticagrelor (BRILINTA) 90 Take 1 tablet (90 60 tablet 11 07/2608/27/2021 mg tabletIndications: mg) by mouth 2 NSTEMI (non-ST elevated times a day myocardial infarction) (HCC), Spontaneous dissection of coronary artery traMADol (ULTRAM) 50 mg TAKE 1 TABLET (50 30 tablet 1 07/25 tabletIndications: Lumbar MG) BY MOUTH 1 TIME degenerative disc disease A DAY NEEDED FOR SEVERE PAIN *MUST LAST 30 DAYS* HYDROcodone-acetaminophen TAKE 1 TABLET BY 60 tablet 0 06/2020 (NORCO) 7.5-325 mg MOUTH EVERY 12 tabletIndications: Lumbar HOURS NEEDED FOR degenerative disc disease SEVERE PAIN lisinopril (PRINIVIL, TAKE 1 TABLET (10 90 tablet 0 021 ZESTRIL) 10 mg MG) BY MOUTH 1 TIME tabletIndications: PER DAY Essential hypertension atorvaSTATin (LIPITOR) 40 TAKE 1 TABLET (40 90 tablet 3 mg tabletIndications: MG) BY MOUTH 1 TIME Dyslipidemia PER DAY levothyroxine 175 mcg TAKE 1 TABLET (175 90 tablet 1 2020 tabletIndications: MCG) BY MOUTH 1 Hypothyroidism (acquired) TIME PER DAY metoprolol succinate TAKE 1 TABLET BY 180 tablet 0 0 (TOPROL XL) 50 mg SR MOUTH TWICE DAILY tablet (24 hr)Indications: Essential hypertension amLODIPine (NORVASC) 5 mg TAKE 1 TABLET (5 180 tablet 0 11/24 tabletIndications: MG) BY MOUTH 2 Essential hypertension TIMES A DAY FILL AT [facility] QUEtiapine (SEROQUEL) 300 TAKE 1 TABLET (300 180 tablet 4 mg tabletIndications: MG TOTAL) BY MOUTH Recurrent major EVERY NIGHT AT depressive disorder, in BEDTIME full remission ([facility]) omeprazole (PRILOSEC) 20 TAKE 1 CAPSULE (20 90 capsule 2 mg capsuleIndications: MG) BY MOUTH 2 Irritable bowel syndrome TIMES A DAY with both constipation NEEDED and diarrhea documented as of this encounter Progress Notes Gm Khan, PHARM D - 08/21/2020 9:17 PM CDT 08/21/2020 9:17 PM CDT Patient was seen by pharmacy for medication reconciliation. Home medications have been reconciled and updated on the home medications list to match the patient's home usage. Notes: Patient states he takes Bisacodyl 15 mg (3 tabs) every day at bedtime. Prior to Admission Medications Prescriptions Last Dose Informant Patient Reported? Taking? HYDROcodone-acetaminophen (NORCO) 7.5-325 mg tablet 08/20/2020 at PRN Self No Yes Sig: TAKE 1 TABLET BY MOUTH EVERY 12 HOURS NEEDED FOR SEVERE PAIN QUEtiapine (SEROQUEL) 300 mg tablet 08/20/2020 at pm Self No Yes Sig: TAKE 1 TABLET (300 MG TOTAL) BY MOUTH EVERY NIGHT AT BEDTIME Patient taking differently: Take 300 mg by mouth every night at bedtime TAKE 1 TABLET (300 MG TOTAL)BY MOUTH EVERY NIGHT AT BEDTIME amLODIPine (NORVASC) 5 mg tablet 08/20/2020 at pm Self No Yes Sig: TAKE 1 TABLET (5 MG) BY MOUTH 2 TIMES A DAY FILL AT [facility] Patient taking differently: Take 5 mg by mouth every night at bedtime atorvaSTATin (LIPITOR) 40 mg tablet 08/20/2020 at pmtime Self No Yes Sig: TAKE 1 TABLET (40 MG) BY MOUTH 1 TIME PER DAY Patient taking differently: Take 40 mg by mouth every night at bedtime TAKE 1 TABLET (40 MG) BY MOUTH 1 TIME PER DAY levothyroxine 175 mcg tablet 08/20/2020 at pm Self No Yes Sig: TAKE 1 TABLET (175 MCG) BY MOUTH 1 TIME PER DAY Patient taking differently: Take 175 mcg by mouth every night at bedtime lisinopril (PRINIVIL, ZESTRIL) 10 mg tablet 08/20/2020 at pm Self No Yes Sig: TAKE 1 TABLET (10 MG) BY MOUTH 1 TIME PER DAY metoprolol succinate (TOPROL XL) 50 mg SR tablet (24 hr) 08/20/2020 at pm Self No Yes Sig: TAKE 1 TABLET BY MOUTH TWICE DAILY Patient taking differently: Take 50 mg by mouth 1 time per day omeprazole (PRILOSEC) 20 mg capsule 08/21/2020 at am Self No Yes Sig: TAKE 1 CAPSULE (20 MG) BY MOUTH 2 TIMES A DAY NEEDED Patient taking differently: Take 20 mg by mouth 1 time a day in the morning TAKE 1 CAPSULE (20 MG) BY MOUTH 2 TIMES A DAY NEEDED 08/21/20: Patient states he takes 20 mg in the AM & then an additional 20 mg as needed later in the day traMADol (ULTRAM) 50 mg tablet Past Week at PRN Self No Yes Sig: TAKE 1 TABLET (50 MG) BY MOUTH 1 TIME A DAY NEEDED FOR SEVERE PAIN *MUST LAST 30 DAYS* Patient taking differently: Take 50 mg by mouth 1 time a day as needed for moderate pain TAKE 1 TABLET (50 MG) BY MOUTH 1 TIME A DAY NEEDED FOR SEVERE PAIN *MUST LAST 30 DAYS* Facility-Administered Medications: None Gm Khan, PHARM D documented in this encounter Miscellaneous Notes Clinical Team - Jessica Garza RN - 08/22/2020 2:38 PM CDTPt discharged home w/ OLYA, Stu. Brought down in Wheelchair w/ aid. Wallet, phone, and readers sent w/ pt. Discharged w/medications. Discharge education provided. All LDA's removed. Pressure points WDL. ase Jas - Pam Lynn RN - 08/22/2020 1:21 PM CDTCASE MANAGEMENT / SOCIAL SERVICE FINAL TRANSITION PLAN TRANSITION DATE: 08/22/2020 TRANSITION TIME: 14:00 pending final orders INTENDED PAYER SOURCE FOR AGENCY: Not Applicable TRANSITION DESTINATION: Home DOES ACCEPTING FACILITY REQUIRE COVID TESTING BEFORE DISCHARGE: N/A TRANSITION TRANSPORTATION: Family Car Friend car TRANSPORTATION PAYMENT: Not applicable TRANSITION CHOICES OFFERED: Cardiac Rehab Home: Family/Friend Support Per chart Patient referred to outpatient Cardiac Rehab program DOES THE PATIENT HAVE A PRIMARY CARE PHYSICIAN? Yes Jennifer Blackburn PA-C PATIENT / SUBSTITUTE DECISION MAKER GOAL UPON TRANSITION: First Choice: Cardiac Rehab Home: Family/Friend Support PATIENT CHOICE EDUCATION: Not applicable MEDICARE 3 IP MIDNIGHT CRITERIA MET: N/A RESOURCE(S) PROVIDED: NA DOES PATIENT HAVE CLOTHING TO WEAR AT DISCHARGE? Yes ANTICIPATED MODE OF TRANSPORT TO AND FROM FOLLOW UP APPOINTMENTS: Drive self VERIFIED CORRECT PHARMACY IS ENTERED FOR DISCHARGE: No Patient interested in coupon for Brilinta, this may be provided at [address], outpatient pharmacist alerted. Nurse Practitioner informed and attending team. METHOD OF PRESCRIBING MEDICATIONS: Other retail TRANSITION ROUNDING COMPLETED WITH THE FOLLOWING: Patient / family Bedside RN Discussed in person COMMENTS / PATIENT AND FAMILY RESPONSE TO PLAN: This creative services manager visited with patient and friend in room, introduced self and reviewed role of casemanager. Patient has voiced anxious to go home as he anticipates plan for discharge is today as per the medical providers.have updated him today. Patient aware he has had cardiac cath, not stent. Patient said lives in a house. He has been independent for activities of daily living. He has a primary care provider and confirms that Jennifer Blackburn listed on chart correct. SPECIAL TRANSITION DAY INSTRUCTIONS TO NURSE / MD: N/A CURRENT READMISSION RISK SCORE / HANDOFF: Predictive Risk Score Risk of Unplanned Readmission: 12.4 Handoff given: N/A Risk of readmission questions not completed at this time, patient anxious for discharge Per chart encounters no frequent admissions listed Patient independent for activities of daily living. SIGNED: Pam Lynn RN BS Digital Production Artist [facility] [phone] Pager [phone] espiratory Therapy - Lili Asher RRT - 08/22/2020 1:01 PM CDTPatient was seen to assess need for Nicotine Replacement Therapy. Patient is a current 0.5 pack perday smoker. Will order 14 mg nicotine patch and lozenges as needed per NRT protocol. Patient declined tobacco education at this time. TUYET Murphy, E COMMERCE PROJECT MANAGER Respiratory Care Disease Management [phone] Clinical Team - Jessica Garza RN - 08/22/2020 10:30 AM CDT Upon Admission to [facility], skin assessment completed with Ping Cheng RN. Upon skin assessment including pressure points findings include: R) radial site, Abdominal surgical scar, lower back surgical scar. Plan/Intervention encourage movement, therapy consults, specialty mattress, routine skin care. [facility] - Alesia Rodriguez EP - 08/22/2020 9:54 AM CDTCardiac Rehab Phase 1 Inpatient Note: Diagnosis: NSTEMI - Treat medically Physical Activity Completed: Ambulate in cruz Distance Ambulated: 275 feet Ambulation Assistance: independent Patient response to Exercise: good Exercise Comments: Steady gait. Tolerates exercise well. Asymptomatic. Assessment/Plan: Tolerates activity well. Encouraged patient to ambulate in hallway 3-4 times daily as tolerated with gradual progression. -Progress as tolerated -Patient may self ambulate -Patient referred to outpatient Cardiac Rehab program -Continue to follow until until Discharge -Home activity and exercise teaching completed Recommendation: "Outpatient Cardiac Rehab in [place] Continue Inpatient Cardiac Rehab Plan of Care daily until discharge. Cardiac Rehab Alpha Pager: [phone] Clinical Team - Jaime Snell RN - 08/22/2020 6:37 AM CDTShift Summary Summary No acute events overnight. Assessment Neurological: A/O x4, follows commands, PERRLA Respiratory: RA, Clear lung sounds Cardiac: NSR, normotensive GI/: Voiding adequately in urinal, no BM, tolerating diet. Incisions/Drains/Dressings: Right radial site is CDI. IV's/Lines: 2 PIVs. Clinical Team - Vasu Kee RN - 08/21/2020 11:42 PM [id number] Shift Summary Assessment Neurological: AOx4; follows commands Respiratory: Clear lungs; RA O2: 100% Cardiac: Gave labetalol PRN once. Monitor: BP. GI/: no concerns Nutrition/Diet: Heart Healthy Diet ostOp Progress Note - Javier Borja MD - 08/21/2020 5:11 PM CDT Immediate Post- Cardiac Catheterization Progress Note Att. Phys: Willy Prakash MD Operative Date: 08/21/2020 Surgeon: aJvier Borja MD Inspector Canvas Products: none Pre-Operative Diagnosis: NSTEMI. Post-Operative Diagnosis: significant, 70% CAD involving small D1 branch (due to spontaneous dissection) - not amenable to PCI due to small caliber; recommend medical management. Anesthesia Type: See Directory Compiler procedure log Operative Procedure: CAG, LHC. Specimens: None Fluids Given: See Directory Compiler procedure log Urine Output: See Directory Compiler procedure log Estimated Blood Loss: 10 mL Drains: none Findings: Coronary anatomy- significant, 70% CAD involving small D1 branch (due to spontaneous dissection) - not amenable to PCI due to small caliber; recommend medical management. Left ventriculography- severely elevated EDP. Hemodynamics- severe HTN. Complications: None Disposition: medical management, better BP control. Postoperative Condition: stable The procedure was performed using moderate conscious sedation. The patient was monitored utilizing continuous pulse oximetry, continuous telemetry and intermittent blood pressure measurements throughout the procedure without notable aberration in vitals. Please see the patient's procedure log for fur ther information. Physician start time 04:56 pm. Physician stop time 05:07 pm. hysician Pre Procedure Evaluation - Javier Borja MD - 08/21/2020 4:48 PM CDTMODERATE SEDATION: Moderate Sedation Adult Without Short Form Physician Pre-Procedure Sedation Plan (Moderate Sedation) (Note: A complete H&P is required for procedures requiring anesthesia and for inpatients.) Indication for Care: I affirm the indication for the procedure is still present. History & Physical: An up to date H&P has been completed and is available for this procedure. Date of H&P: 08/21/20. Chief Complaint/HPI/Reason for Procedure: NSTEMI. Sedation Plan: Moderate Sedation: ASA Score = 3 Mallampati Class = II (soft palate, uvula, fauces visible) Physician's Affirmation of Discussion: I have explained the known risks, benefits, goals, and alternatives to the procedure or treatment and/or sedation. I affirm the indication for the procedure is still present. I have assessed the patient and vital signs immediately prior to sedation and concur with sedation plan. documented in this encounter Plan of Treatment Date Type Specialty Care Team Description 08/29/2020 Office Visit [facility] Jennifer Blackburn PA-C [address] [place] [address] [phone] Name Type Priority Associated Diagnoses Order S chedule RENAL FUNCTION PANEL Lab Routine Early A M draw for labs until discontinued st arting 08/22/2020, 1 c ompleted Name Type Priority Associated Diagnoses Order S chedule CLINIC REFERRAL Referral Routine NSTEMI (non-ST elevated O rdered: 08/22/2020 CARDIOLOGY ONE CHART myocardial infarctio n) (HCC) Spontaneous dissection of coronary artery documented as of this encounter Goals Goal Patient Goal Associated Recent Patient-Stated? Author Type Problems Progress DIET - REDUCE Diet No Alexey, CALORIE INTAKE SUZE Stephens-Boyd LIFESTYLE - Exercise No Alexey, INCREASE Jennifer Carvalho, PHYSICAL PA-C ACTIVITY documented as of this encounter Procedures Procedure Name Priority Date/Time Associated Comments Diagnosis COMPLETE BLOOD COUNT Routine 08/22/2020 7:06 Res ults for this WITHOUT DIFFERENTIAL AM CDT procedu re are in the results section. RENAL FUNCTION PANEL Routine 08/22/2020 7:06 Res ults for this AM CDT procedure are i n the results section. TROPONIN I Timed Routine 08/21/2020 8:00 Results fo r this PM CDT procedure are i n the results section. TROPONIN I Timed Routine 08/21/2020 5:37 Results fo r this PM CDT procedure are i n the results section. CARDIAC CATH Routine 08/21/2020 4:56 Results for this POSSIBLE ANGIOPLASTY PM CDT procedu re are in STENT OFFICE ADMINISTRATION the results section. EKG Routine 08/21/2020 2:57 Results for this PM CDT procedure are i n the results section. ECHO ADULT COMPLETE Routine 08/21/2020 2:18 Resu lts for this PM CDT procedure are i n the results section. LAB ONLY-COMPLETE Routine 08/21/2020 1:58 Result s for this BLOOD COUNT WITH PM CDT procedure a re in DIFFERENTIAL the results section. PTT NATI 08/21/2020 1:58 Results for this PM CDT procedure are i n the results section. TROPONIN I Timed Routine 08/21/2020 1:58 Results fo r this PM CDT procedure are i n the results section. MAGNESIUM Routine 08/21/2020 1:58 Results for this PM CDT procedure are i n the results section. RENAL FUNCTION PANEL Routine 08/21/2020 1:58 Res ults for this PM CDT procedure are i n the results section. LAB ONLY-COMPLETE Routine 08/21/2020 1:58 Result s for this BLOOD COUNT WITH PM CDT procedure a re in DIFFERENTIAL the results section. BRAIN NATRIURETIC Routine 08/21/2020 1:58 Result s for this PEPTIDE PM CDT procedure are i n the results section. documented in this encounter Results COMPLETE BLOOD COUNT WITHOUT DIFFERENTIAL (08/22/2020 7:06 AM CDT) Pathologist Sig [facility] WBC 8.0 4.0 - 11.0 K/uL [address] RBC 3.73 (L) 4.40 - 5.80 M/uL [address] [address] Hemoglobin 13.0 (L) 13.5 - 17.5 g/dL [address] Hematocrit 37.1 (L) 40.0 - 50.0 % [address] MCV 99.5 (H) 80.0 - 98.[address] MCH 34.9 (H) 25.5 - 34.[address] MCHC 35.0 31.5 - 36.5 g/dL [address] RDW-CV 13.3 11.5 - 15.5 % [address] RDW-SD 48.5 35.5 - 50.[address] Platelet Count 213 140 - 400 K/uL [address] MPV 9.6 8.5 - 12.[address] Specimen Blood - Blood specimen (specimen) Performing Organization Address City/State/Zipcode Phone Number [address] [place] [address] RENAL FUNCTION PANEL (08/22/2020 7:06 AM CDT) Pathologist Sig [facility] Glucose 100 70 - 100 mg/dL [address] BUN 11 6 - 22 mg/dL [address] Creatinine 0.88 0.80 - 1.[address] mg/dL BUN/Creatinine Ratio 12.5 10.0 - 25.[address] Sodium 140 135 - 145 meq/L [address] Potassium 3.6 3.5 - 5.3 meq/L [address] Chloride 108 99 - 110 meq/L [address] CO2 24 20 - 29 meq/L [address] Anion Gap with K 12 6 - 20 meq/L [address] Calcium 9.1 8.5 - 10.5 mg/dL [address] Phosphorus 3.1 2.5 - 4.5 mg/dL [address] Albumin 3.8 3.5 - 5.0 g/dL [address] Corrected Calcium 9.3 8.5 - 10.5 mg/dL [address] Age [address] eGFR Non- 90 >=[address] British mL/min/1.73m2 eGFR >90 >=[address] mL/min/1.73m2 Specimen Blood - Blood specimen (specimen) Performing Organization Address [facility] [place] Phone Number [address] [place] [address], [place] [address] TROPONIN I (08/21/2020 8:00 PM CDT) Pathologist Sig [facility] Troponin I 0.476 (H) 0.000 - 0.028 ng/mL [address] Specimen Blood - Blood specimen (specimen) Performing Organization Address [facility] [place] Phone Number [address] [place] [address] [place] [address] TROPONIN I (08/21/2020 5:37 PM CDT) Pathologist Sig [facility] Troponin I 0.368 (H) 0.000 - 0.028 ng/mL [address] Specimen Blood - Blood specimen (specimen) Performing Organization Address [facility] [place] Phone Number [address] [place] [address] Cardiac Cath Possible Angioplasty Stent Directory Compiler - Left; With grafts? No (08/21/2020 4:56 PM CDT) Specimen Narrative Performed At This result has an attachment that is no t available. [facility] Patient: JADEN HAYES [facility] Exam Date: 08/21/[address] Exam Time: 04:56 PM-05:07 PM ISATU Duff [id number] Department of Interventional Cardiology Diagnostic Left Heart Catheterization Report : 1965 Fluoro Time: 1.4 min. Patient Status: Inpatient Age: 55 year(s) Cath Status: Patient Room: [facility] Gender: Male Diagnostic Java Jsf Developer: JAVIER BORJA MD Indication: Angina/SC: myocardial infa rction without ST elevation (NSTEMI). Procedures Performed: Fluoro 0.1-60 Minutes. Medication/Infusi on/Drip. Art Access - R radial artery. Selective Lt Coronary Angiography. Selective Rt Coronary Angiography. Radial Artery Compression Device . Diagnostic Findings: Coronary Angiography The coronary circulation is right dominant. Left Main Left main artery: The segment is large. Angiography sh ows no disease. Left Anterior Descending Left anterior descending artery: The seg ment is large. Angiography shows no disease. First diagonal: The segment is moderately sized. There is a 70 % stenos is in the mid portion of the segment due to spontaneous dissection. Circumflex Circumflex artery: The segment is large. Distal circumflex: There is a 20 % stenosis. First obtuse marginal: The segment is large. Angiography shows no disease. Second obtuse marginal: The segment is large. Angiography shows no disease. Right Coronary Right coronary artery: The segment is la rge. Angiography shows no disease. Right posterior descending artery: The segment is large. Angiography shows no d isease. Right Posterolateral Segment: The segment is large. Angiography shows no disease. Left Heart Cath Left ventricular function was not assess ed. Ejection fraction was not calculated. Diagnostic Conclusions: - There is significant single vessel cor onary artery disease involving small caliber D1 branch (due to spontaneous dissection) not amenable to PCI - recommend medical ma nagement. Procedure Narrative: Access Right radial artery: The puncture site was infiltrated with 3 .0 ml of 1% Lidocaine. Vascular access was obtained using modified seldinger technique and a GLIDESHEATH SL KAAN 6FR [id number] was advanced into the vessel. Hemostasis/Sheath Status: Hemostasis was successful using mechanical compression. Coronary Angiography Left Coronary System: A catheter was positioned into the Vesse l Ostium under fluoroscopic guidance. Contrast injections were performed using hand injection. Angiograms were obtain ed in multiple views. Right Coronary System: A catheter was positioned into the Vesse l Ostium under fluoroscopic guidance. Contrast injections were performed using hand injection. Angiograms were obtain ed in multiple views. Hemodynamic Impressions General Impressions: Hemodynamic assessm ent demonstrates Severe systemic hypertension, Left ventricular end diastolic pressure is severely elevate d. Hemodynamic Findings Pressures: Baseline: LV pressure 174mm Hg, EDP 36. Baseline: AO pressure 171/94mmHg, mean 127. Hemodynamic Pressures-Phase: Baseline Location : LV Pressure s : 174 mmHg Pressure ed : 36 mmHg HR : 70 bpm Hemodynamic Pressures-Phase: Baseline Location : Ao Pressure s : 171 mmHg Pressure d : 94 mmHg Pressure m : 127 mmHg HR : 72 bpm Flow Calculations, Phase: Baseline VO2: 265.72 ml/min Shunts Contrast: Description Dose Unit HIS No. Reference No. Serial No. Lot No. Omnipaque 60. 000 ml C34 C34 X-Ray: Exam total DAP: 1049.00 cGycm- sq Air Kerma/Exam Total Dose: 74 mGy Acute complication: No complications Ordering Physician: AIME VEGAS NP CCL Economic Development Coordinator: ALIYAH MOREJON RN Scrub: Twyla MARSH CIS Monitor: USMAN STILES RN Drywall Hanger Framer: RT HERBERT(R) Primary Java Jsf Developer: RITO HALE MD [facility] 21 at 05:30 PM (No Signature Object) Procedure Note Interface, Inc Results No Pull Forward - 08/21/2020 5:33 PM CDT Patient: JADEN HAYES [facility] Exam Date: 08/21/[address] Exam T sonia: 04:56 PM-05:07 PM Omega, ISATU [address] [facility] tment of Interventional Cardiology Diagnostic Left Heart Catheterization Re port : 1965 Fluoro Time: 1.4 min. Patient Status: Inpatient Age: 55 year(s) Cath Status: Patient Room: [facility] Gender: Male Diagnostic Java Jsf Developer: JAVIER MOYA MD Indication: Angina/SC: myocardial infar ction without ST elevation (NSTEMI). Procedures Performed: Fluoro 0.1-60 Minutes. Medication/Infusi on/Drip. Art Access - R radial artery. Selective Lt Coronary Angiography. Selective Rt Coronary Angiography. Radial Artery Comp ression Device. Diagnostic Findings: Coronary Angiography The coronary circulation is right domina nt. Left Main Left main artery: The segment is large. Angiography shows no disease. Left Anterior Descending Left anterior descending artery: The seg ment is large. Angiography shows no disease. First diagonal: The segment is moderately sized. There is a 70 % stenos is in the mid portion of the segment due to spontaneous dissection. Circumflex Circumflex artery: The segment is large. Distal circumflex: There is a 20 % stenosis. First obtuse marginal: The segment is large. Angiography shows no disease. Second obtuse marginal: The segment is large. Angiography shows no disease. Right Coronary Right coronary artery: The segment is la rge. Angiography shows no disease. Right posterior descending artery: The segment is large. Angiography shows no d isease. Right Posterolateral Segment: The segment is large. Angiography shows no disease. Left Heart Cath Left ventricular function was not assess ed. Ejection fraction was not calculated. Diagnostic Conclusions: - There is significant single vessel cor onary artery disease involving small caliber D1 branch (due to spontaneous dissection) not amenable to PCI - recomm end medical management. Procedure Narrative: Access Right radial artery: The puncture site was infiltrated with 3 .0 ml of 1% Lidocaine. Vascular access was obtained using modified seldinger technique and a Piano MediaTH SL KANA 6FR [id number] was advanced into the vessel. Hemostasis/Sheath Status: Hemostasis was successful using mechanical compression. Coronary Angiography Left Coronary System: A catheter was positioned into the Vesse l Ostium under fluoroscopic guidance. Contrast injections were performed using hand injection. Angiogra ms were obtained in multiple views. Right Coronary System: A catheter was positioned into the Vesse l Ostium under fluoroscopic guidance. Contrast injections were performed using hand injection. Angiogra ms were obtained in multiple views. Hemodynamic Impressions General Impressions: Hemodynamic assessm ent demonstrates Severe systemic hypertension, Left ventricular end diastolic pressure is se verely elevated. Hemodynamic Findings Pressures: Baseline: LV pressure 174mmH g, EDP 36. Baseline: AO pressure 171/94mmHg, mean 127. Hemodynamic Pressures-Phase: Baseline Location : LV Pressure s : 174 mmHg Pressure ed : 36 mmHg HR : 70 bpm Hemodynamic Pressures-Phase: Baseline Location : Ao Pressure s : 171 mmHg Pressure d : 94 mmHg Pressure m : 127 mmHg HR : 72 bpm Flow Calculations, Phase: Baseline VO2: 265.72 ml/min Shunts Contrast: Description Dose Un it HIS No. Reference No. Serial No. Lot No. Omnipaque 60.000 ml C34 C34 X-Ray: Exam total DAP: 1049.00 cGycm-sq Air Kerma/Exam Total Dose: 74 mGy Acute complication: No complicatio ns Ordering Physician: AIME MEIDNA NP CCL Economic Development Coordinator: ALIYAH MOREJON RN Scrub: CHACORTA Cody, HOME COMFORT ADVISOR Monitor: USMAN CALZADA RN Drywall Hanger Framer: WES GUZMAN, RT(R) Primary Java Jsf Developer: RITO HALE MD [facility] (No Signature Object) Performing Organization Address [facility] Phone Number [facility] F, [place] EKG (08/21/2020 2:57 PM CDT) Pathologist Sig nature EKG WAVEFORM TRACEMASTBRITTANY LEO Sinus bradycardia Nonspecific ST abnormality Abnormal ECG Ventricular Rate: 58 BPM Atrial Rate: 58 BPM P-R Interval: 136 ms QRS Duration: 86 ms Q-T Interval: 440 ms QTc Calculation(Bazett): 431 ms Calculated P Isabella: 74 degrees Calculated R Isabella: 72 degrees Calculated T Isabella: 52 degrees Specimen Narrative Performed At This result has an attachment that is no t available. Performing Organization Address City/[facility] Phone Number [employer] ECHO ADULT COMPLETE (08/21/2020 2:18 PM CDT) Specimen Narrative Performed At This result has an attachment that is no t available. [facility] Patient: JADEN HAYES MR#: [id number] Exam Date: 08/21/2020 Transthoracic Echocardiogram [facility] [address] [place] [address] BP: 144/97 mmHg HR: 62 bpm : 1965 Exam Location: Bedside Height: 73.00 "(185.4 cm) Age: 55 year(s) Patient Room: [facility] Weight: 199 lbs.(90.27 kg) Gender: Male Patient Status: Inpatient BSA: 2.15 m2 Casting Machine Control Board Operator: CIARRA MARIE . Reading Physician: Maia JIMENEZ Ordering Physician: WILLY PRAKASH MD Procedure Indication(s): NSTEMI Examination: TTE Complete 2D(m-mode), Complete Spectral Doppler, Color Doppler Conclusions Left Ventricle: Normal left ventricular size. Normal lef t ventricular systolic function. The ejection fraction is visually estimated to be 60 %. There are no left ventricular regional wall motion abn ormalities. Mitral Valve: Trivial mitral regurgitation. Right Ventricle: Normal right ventricular size. Normal right ventricula r systolic function. Tricuspid Valve: Trivial tricuspid regurgitation. Comparison Study Comparison Study: No previous echo was available for c omparison Findings Left Ventricle: Normal left ventricular size. Normal lef t ventricular wall thickness. Normal left ventricular systolic function. The ejection fraction is visually estimated to be 60 %. There are no left ventricular regional wall motion abnormalities. Grade 1 left ventricular diastolic dysfunction. Left Atrium: Normal left atrial size. Aortic Valve: Tricuspid aortic valve with normal funct ion. No significant aortic regurgitation. No aortic stenosis. Aorta: The sinus of valsalva is normal in size measuring 39.0 mm. The ascending aorta is normal in size measuring 36.0 mm. Mitral Valve: Mild mitral leaflet thickening. Trivial mitral regurgitation. No mitral stenosis. IAS: No gross evidence of shunt flow seen; ho wever the possibility of a PFO cannot be completely ruled out. Right Ventricle: Normal right ventricular size. Normal ri ght ventricular systolic function. Normal right ventricular wall thickness. Pulmonary Artery: The tricuspid jet envelope definition is inadequate for estimation of RV systolic pressure. Right Atrium: Normal right atrial size by visual assessment. Tricuspid Valve: Normal tricuspid valve structure. Trivial tricuspid re gurgitation. Pulmonic Valve: Normal pulmonary valve structure. No sig nificant pulmonary regurgitation. No pulmonary stenosis. IVC: Normal IVC size with normal respirophasic changes. Pericardium: No significant pericardial effusion. Measurements Left Ventricle Aortic Valve Label Value Normal Value Label Value Normal Value LVDd, 2D 55.1 mm LVOT Vmax 97 cm/s LVDs, 2D 38.2 mm AV Vmax 122 cm/s IVSd, 2D 7.6 mm LVOTd 20 mm LVPWd, 2D 7.6 mm LVOT VTI 20.6 cm FS, 2D 30.67 % LVOT PGmax 4 mmHg LVEDV, 2D 148 ml AV Vmean 88 cm/s LVESV, 2D 63 ml AV VTI 26.9 cm Cardiac Output 4.03 L/min AV PGmax 6 mmHg Cardiac Index 1.87 AV PGmean 3 mmHg L/min/m-sq [facility] (Vmax) 2.5 cm-sq Left Atrium AV Vmax, Caliper 122 cm/s Label Value Normal Value Mitral Valve LADs Long. 50 mm Label Value Normal Value LA Volume Index 20.7 ml/m-sq MV E Vmax 69 cm/s Aorta MV A Vmax 53 cm/s Label Value Normal Value MV E/A 1.3 Ao Asc 36 mm MV E/E' lateral 6.7 Ao Sinus, 2D 39 mm MV E/E' septal 7.1 Heart Rate MV Dec Time 197 ms Label Value Normal Value MV E' septal 9.6 cm/s Heart Rate 62 bpm MV PHT 0.06 s MVA PHT 3.8 cm-sq MV E' lateral 10.2 cm/s Tricuspid Valve Label Value [place] l Value RA Pressure 3 mmHg Pulmonic Valve Label Value [place] l Value PV Vmax 88 cm/s PV PGmax 3 mmHg Electronically signed by LB BYNUM MD on 021 at 04:30 PM Procedure Note Interface, Inc Results No Pull Forward - 08/21/2020 4:32 PM CDT Patient: JADEN HAYES MR#: [id number] Exam Date: 08/21/2020 Transthoracic Echocardiogram [facility] [address] [place] [address] BP: 144/97 mmHg HR: 62 bpm : 1965 Exa m Location: Bedside Height: 73.00 "(185.4 cm) Age: 55 year(s) Pat ient Room: [facility] Weight: 199 lbs.(90.27 kg) Gender: Male Pat ient Status: Inpatient BSA: 2.15 m2 Casting Machine Control Board Operator: CIARRA LYNCH, . Reading Physician: LB JORDAN MD Ordering Physician: WILLY Amanda MD Procedure Indication(s): NSTEMI Examination: TTE Co mplete 2D(m-mode), Complete Spectral Doppler, Color Doppler Conclusions Left Ventricle: Normal left ventricular size. Normal lef t ventricular systolic function. The ejection fraction is visually estimated to be 60 %. There are no left ventricular regional w all motion abnormalities. Mitral Valve: Trivial mitral regurgitation. Right Ventricle: Normal right ventricular size. Normal ri ght ventricular systolic function. Tricuspid Valve: Trivial tricuspid regurgitation. Comparison Study Comparison Study: No previous echo was a vailable for comparison Findings Left Ventricle: Normal left ventricular size. Normal lef t ventricular wall thickness. Normal left ventricular systolic function. The ejection fraction is visually estimated to be 60 %. There are no left ventricular regional wall motion abnormalities. Grade 1 left ventricular diastolic dysfunction. Left Atrium: Normal left atrial size. Aortic Valve: Tricuspid aortic valve with normal funct ion. No significant aortic regurgitation. No aortic stenosis. Aorta: The sinus of valsalva is normal in size measuring 39.0 mm. The ascending aorta is normal in size measuring 36.0 mm. Mitral Valve: Mild mitral leaflet thickening. Trivial mitral regurgitation. No mitral stenosis. IAS: No gross evidence of shunt flow seen; ho wever the possibility of a PFO cannot be completely ruled out. Right Ventricle: Normal right ventricular size. Normal ri ght ventricular systolic function. Normal right ventricular wall thickness. Pulmonary Artery: The tricuspid jet envelope definition is inadequate for estimation of RV systolic pressure. Right Atrium: Normal right atrial size by visual asses sment. Tricuspid Valve: Normal tricuspid valve structure. Trivia l tricuspid regurgitation. Pulmonic Valve: Normal pulmonary valve structure. No sig nificant pulmonary regurgitation. No pulmonary stenosis. IVC: Normal IVC size with normal respirophasi c changes. Pericardium: No significant pericardial effusion. Measurements Left Ventricle Aortic Valve Label Value Norm al Value Label Value Normal Value LVDd, 2D 55.1 mm LVOT Vmax 97 cm/s LVDs, 2D 38.2 mm AV Vmax 122 cm/s IVSd, 2D 7.6 mm LVOTd 20 mm LVPWd, 2D 7.6 mm LVOT VTI 20.6 cm FS, 2D 30.67 % LVOT PGmax 4 mmHg LVEDV, 2D 148 ml AV Vmean 88 cm/s LVESV, 2D 63 ml AV VTI 26.9 cm Cardiac Output 4.03 L/min AV PGmax 6 mmHg Cardiac Index 1.87 AV PGmean 3 mmHg L/min/m-sq AV A (Vmax) 2.5 cm-sq Left Atrium AV Vmax, Caliper 122 cm/s Label Value Norm al Value Mitral Valve LADs Long. 50 mm Label Value Normal Value LA Volume Index 20.7 ml/m-sq MV E Vmax 69 cm/s Aorta MV A Vmax 53 cm/s Label Value Norm al Value MV E/A 1.3 Ao Asc 36 mm MV E/E' lateral 6.7 Ao Sinus, 2D 39 mm MV E/E' septal 7.1 Heart Rate MV Dec Time 197 ms Label Value Norm al Value MV E' septal 9.6 cm/s Heart Rate 62 bpm MV PHT 0.06 s MVA PHT 3.8 cm-sq MV E' lateral 10.2 cm/s Tricuspid Valve Label Value Norm al Value RA Pressure 3 mmHg Pulmonic Valve Label Value Norm al Value PV Vmax 88 cm/s PV PGmax 3 mmHg Performing Organization Address [facility] Phone Number [facility] [place], [place] MAGNESIUM (08/21/2020 1:58 PM CDT) Pathologist [facility] Magnesium 1.9 1.8 - 2.4 mg/dL [address] Specimen Blood - Blood specimen (specimen) Performing Organization Address [facility] Phone Number [address] [place] [address] LAB ONLY-COMPLETE BLOOD COUNT WITH DIFFERENTIAL (08/21/2020 1:58 PM CDT) WBC 12.1 (H) 4.0 - 11.0 K/uL [address] RBC 3.84 (L) 4.40 - 5.[address] M/uL Hemoglobin 13.4 (L) 13.5 - 17.[address] g/dL Hematocrit 38.5 (L) 40.0 - 50.0 % [address] MCV 100.3 (H) 80.0 - 98.[address] MCH 34.9 (H) 25.5 - 34.[address] MCHC 34.8 31.5 - 36.[address] g/dL RDW-CV 13.1 11.5 - 15.5 % [address] RDW-SD 47.9 35.5 - 50.[address] Platelet Count 239 140 - 400 K/uL [address] MPV 9.3 8.5 - 12.[address] Seg Neut Absolute 9.5 (H) 1.8 - 8.0 K/uL [address] Lymphocytes Absolute 1.9 0.8 - 4.1 K/uL [place] [address] [facility] Monocytes Absolute 0.4 0.0 - 1.0 K/uL [address] Eosinophils Absolute 0.1 0.0 - 0.7 K/uL [place] [address] [facility] Basophil Absolute 0.1 0.0 - 0.2 K/uL [address] Immature Granulocyte 0.06 0.00 - 0.[address] Absolute K/uL Neutrophils Abs. 9,500 /uL [address] (Segs and Bands) Neutrophils Percent 78.7 % [address] Lymphocytes Percent 15.8 % [address] Monocytes Percent 3.5 % [address] Immature Granulocyte 0.5 % [address] Percent Eosinophils Percent 1.0 % [address] Basophil Percent 0.5 % [address] Nucleated RBC 0 /[address] Specimen Blood - Blood specimen (specimen) Performing Organization Address City/State/Zipcode Phone Number [address] [facility] [place] [address] RENAL FUNCTION PANEL (08/21/2020 1:58 PM CDT) Pathologist Sig nature Glucose 102 (H) 70 - 100 mg/dL [address] BUN 14 6 - 22 mg/dL [address] Creatinine 1.08 0.80 - 1.[address] mg/dL BUN/Creatinine Ratio 13.0 10.0 - 25.[address] Sodium 139 135 - 145 meq/L [address] Potassium 4.2 3.5 - 5.3 meq/L [address] Chloride 106 99 - 110 meq/L [address] CO2 26 20 - 29 meq/L [address] Anion Gap with K 11 6 - 20 meq/L [address] Calcium 9.1 8.5 - 10.5 mg/dL [address] Phosphorus 2.8 2.5 - 4.5 mg/dL [address] Albumin 4.0 3.5 - 5.0 g/dL [address] Age [address] eGFR Non- 71 >=[address] [place] mL/min/1.73m2 eGFR 86 >=[address] mL/min/1.73m2 Specimen Blood - Blood specimen (specimen) Performing Organization Address [facility] [place] Phone Number [address] [place] [address] BRAIN NATRIURETIC PEPTIDE (08/21/2020 1:58 PM CDT) Pathologist Sig nature BNP 25 0 - 100 pg/mL [address] Specimen Blood - Blood specimen (specimen) Performing Organization Address [facility] Phone Number [address] [place] [address], [place] [address] TROPONIN I (08/21/2020 1:58 PM CDT) Pathologist Sig nature Troponin I 0.155 (H) 0.000 - 0.028 ng/mL [address] Specimen Blood - Blood specimen (specimen) Performing Organization Address [facility] Phone Number [address] [place] [address], [place] [address] PTT (08/21/2020 1:58 PM CDT) Pathologist Sig nature APTT 61 (H) 24 - [address] Specimen Blood - Blood specimen (specimen) Performing Organization Address [facility] Phone Number [address] [place] [address], [place] [address] documented in this encounter Visit Diagnoses Diagnosis NSTEMI (non-ST elevated myocardial infar ction) (HCC) - Primary Acute myocardial infarction, subendocard ial infarction, episode of care unspecified Spontaneous dissection of coronary arter y Other chest pain documented in this encounter Discharge Diagnoses Not on filedocumented in this encounter Administered Medications Medication Order MAR Action Action Date Dose Rate Site acetaminophen (TYLENOL) tablet Given 08/21/2020 7:40 PM CDT 650 mg 650 mg 650 mg, Oral, Every four hours prn, Starting Fri08/21/20 at 1434, Until Discontinued, mild pain, Use FIRST for mild pain. If inadequate response in 60 minutes, may proceed to next choice option or if no other options, contact provider. Adult patients: Total dose of acetaminophen from all acetaminophen containing products should not exceed 4 grams (4000 mg) per day. Pediatric Patients 0 - 3 months: Maximum of 60 mg/kg/24 hours of acetaminophen. Pediatric Patients older than 3 months: Maximum of 75 mg/kg/24 hours of acetaminophen (Never exceeding 4 grams/day)., aspirin chewable tablet 81 mg Given 08/22/2020 7:52 AM CDT 81 mg 81 mg, Oral, Daily, First dose on Fri08/22/20 at 0900, Until Discontinued atorvaSTATin (LIPITOR) tablet 40 mg Given 08/21/2020 10:25 PM CDT 40 mg 40 mg, Oral, Bedtime, First dose on Fri08/21/20 at 2130, Until Discontinued bisacodyl (DULCOLAX) enteric coated tablet 15 Given 10:25 PM CDT 15 mg mg 15 mg, Oral, Bedtime, First dose on Fri08/21/20 at 2130, Until Discontinued, Tablet should be swallowed whole and not be divided, crushed or chewed., bisacodyl (DULCOLAX) suppository 10 mg 10 mg, Rectal, One time a day prn, Starting Fri 1 at 1434, Until Discontinued, constipation, Use SECOND for constipatio n. If patient cannot take oral medications, use first for constipation., calcium carbonate (TUMS) chewable tablet Given 08/22/2020 2 :04 PM CDT 1,000 mg 1,000 mg 1,000 mg, Oral, Every four hours prn, Starting Fri08/21/20 at 1434, Until Discontinued, other (Specify), acid reflux, Use FIRST for acid reflux. If ineffective after 60 minutes, may proceed to next choice option or, if no other options, contact provider., docusate sodium (THEREVAC-SB MINI;ENEMEE Z MINI) 283 MG enema 1 enema 1 enema, Rectal, One time a day prn, Starting 08/21 at 1434, Until Discontinued, constipation, Use THIRD for constipation - if no BM 8 hours after dulcolax suppository. If patient cannot take oral medi cations, use second for constipation., hydrALAZINE (APRESOLINE) injection solution Given 08/21/2020 8:05 PM CDT 10 mg 10 mg 10 mg, IV, Every six hours prn, Starting Fri08/21/20 at 1740, Until Discontinued, specified parameter, to keep SBP less than 150 mmHg, 0.5 mL, Post-Procedure (Cath), Repeat in 20 minutes if needed. If not successful after two doses, contact the interventional cardiology team., levothyroxine tablet 175 mcg Given 08/21/2020 10:25 PM CDT 175 mcg 175 mcg, Oral, Bedtime, First dose on Fri08/21/20 at 2130, Until Discontinued lisinopril (PRINIVIL, ZESTRIL) tablet 10 mg Given 08/22/2020 7:52 AM CDT 10 mg 10 mg, Oral, DAILY, First dose on Fri08/22/20 at 0900, Until Discontinued, Hold for SBP less than 100, melatonin tablet 3 mg 3 mg, Oral, Bedtime prn, Starting Fri at 1434, Until Discontinued, other (Specify), insomnia, Use FIRST for insom hung. If inadequate response in 60 minutes, may proceed to next choice option or, if no other opti ons, contact provider., metoclopramide (REGLAN) inj soln 5 mg 5 mg, IV, Every eight hours prn, Startin g Fri08/21/20 at 1434, Until Discontinued, nausea, vomiting, 1 mL, Use THIRD for na usea / vomiting. If ineffective after 30 minutes and ondansetron oral and IV given, call provid er for alternative. If preference is to further dilute for IV administration: First draw up patient-specific dose, then dilute to 10 mL with 0.9% sodium chloride., metoprolol succinate (TOPROL XL) SR tablet Given 08/21/2020 10:2 5 PM CDT 50 mg (24 hr) 50 mg 50 mg, Oral, Bedtime, First dose on 08/21/20 at 2130, Until Discontinued, Tablet may be broken in half, but should not be crushed or chewed. Hold for SBP less than 100 Hold for HR less than 60, morphine preservative free injection facundo ution (conc: 2 mg/mL) 2 mg 2 mg, IV, Every five minutes prn, 3 doses, Starting Mo n 08/21/20 at 1344, Until Discontinued, other (Specify), chest pain, 1 mL, Admin ister morphine SECOND for chest pain (if nitroglycerin does not re solve pain or if SBP is less than 90 mmHg). Notify provider if administered, nicotine (NICODERM) Applied 08/22/2020 1:17 PM CDT 14 mg Arm Right Right 14mg/24hr patch Upper TD 14 mg (1 patch), Transdermal, Daily, First dose on Fri08/22/20 at 1305, Until Discontinued, Administer over 24 Hours nicotine polacrilex (COMMIT) lozenge 2 m g Given 08/22/2020 1:19 PM CDT 2 mg 2 mg (1 lozenge), Mouth/Throat, Every one hour prn, Starting Fri08/22/20 at 1300, Until Discontinued, smoking cessation, tobacco cravings, Max dose of 20 lozenges in 24 hours Instruct patient not to chew or swallow and allow to dissolve slowly (~20-30 minutes); minimizing swallowing and occasionally move lozenge from one side of the mouth to the other until completely dissolved. Instruct patient not to eat or drink 15 minutes before using or while lozenge is in mouth., nitroglycerin (NITROSTAT) sublingual tab let 0.4 mg 0.4 mg, Sublingual, Every five minutes prn, Starting M on 08/21/20 at 1344, Until Discontinued, chest pain, Administer nitroglycerin FIR ST for chest pain if SBP greater than 90 mmHg; dissolve one table t under tongue; do not crush or chew May repeat every 5 minutes for a total of 3 doses if needed for continued pain as long as SBP remains greater than 90 mmHg. Notify provider if administered., ondansetron (ZOFRAN ODT) dispersible tab let 4 mg 4 mg, Oral, Four times a day prn, Starti ng Fri08/21/20 at 1434, Until Discontinued, nausea, vomiting, Use FIRST for nausea / vomiting. If ineffective after 30 minutes use ondansetron IV, ondansetron (ZOFRAN) injection solution 4 mg 4 mg, IV, Four times a day prn, Starting Fri08/21/20 at 1434, Until Discontinued, nausea, vomiting, 2 mL, Use SECOND for n ausea / vomiting. If ineffective after 30 minutes and ondansetron oral given, use metoclopramide IV If preference is to further dilute for IV administration: First draw up pa tient-specific dose, then dilute to 10 mL with 0.9% sodium chloride., oxyCODONE-acetaminophen (PERCOCET) 5-325 mg tablet 1 tablet 1 tablet, Oral, Every four hours prn, Starting 07/25 at 1740, Until Discontinued, moderate pain, pain scale 4 to 6 or pain not relieved by medications for pain scale 1 to 3; may administer le ss potent prescribed medication based on patient request per the organization's medication tashia gement policy., Post-Procedure (Cath), Total dose of acetaminophen fro m all acetaminophen containing products should not exceed 4 grams (4000 mg ) per day., QUEtiapine (SEROQUEL) tablet 300 mg Given 08/21/2020 10:25 PM CDT 300 mg 300 mg, Oral, Bedtime, First dose on Fri08/21/20 at 2130, Until Discontinued senna-docusate sodium (SENOKOT-S;PERICOL BENJAMIN) tablet 2 tablet 2 tablet, Oral, Two times a day prn, Starting 08/21 at 1434, Until Discontinued, constipation, Use FIRST fo r constipation unless patient cannot take oral medications., sodium chloride 0.9% flush (adult) 10 mL Given 08/22/2020 7:53 AM CDT 10 mL 10 mL, IV, Two times a day and prn, First dose on Fri08/21/20 at 2100, Until Discontinued, 10 mL, Flush IV line as scheduled and as often as necessary before and after meds., Given 08/21/2020 8:06 PM CDT 10 mL ticagrelor (BRILINTA) tablet 90 mg Given 08/22/2020 7:52 AM CDT 90 mg 90 mg, Oral, Two times a day, First dose on Fri08/21/20 at 2130, Until Discontinued, If medication is crushed, must be mixed with water for administration., Given 08/21/2020 10:25 PM CDT 90 mg Medication Order MAR Action Action Date Dose Rate Site diphenhydrAMINE (BENADRYL) capsule Given 08/21/2020 4:57 PM CDT 50 mg 50 mg 50 mg, Oral, One time, 1 dose, Fri08/21/20 at 1710, Prep Orders (Cath) if inpatient - floor RN to release fentaNYL 100 mcg/2 mL preservative free Given 08/21/2020 5:00 P M CDT 50 mcg injection solution 25-300 mcg 25-300 mcg, IV, PRN per parameter, Starting Fri08/21/20 at 1611, Until Fri08/21/20 at 1724, other (Specify), sedation for cardiac catheterization, 6 mL, Pre-Procedure (Cath), procedural area to release, For sedation under direction provider privileged to perform sedation. Do not give on the floor., hEParin (50 units/mL) in D5W New Bag 08/21/2020 2:48 PM 15 Un its/kg/hr 26.6 mL/hr premixed IV solution CDT (STANDARD-weight based) 0-50 Units/kg/hr 88.8 kg (0-88.8 mL/hr), IV, at 0-88.8 mL/hr, Titrate, Starting Fri08/21/20 at 1445, Until Fri08/21/20 at 1712, 500 mL, Start initial infusion at 15 units/kg/hr. Notify physician if initial infusion exceeds 1,500 units/hr. Adjust heparin infusion based on sliding scale: * aPTT less than 60 sec ------ Give 70 units/kg IV bolus and add 4 units/kg/hr to current rate * aPTT 60-69.9 sec Give 35 units/kg IV bolus and add 2 units/kg/hr to current rate * aPTT 70-120.9 sec No change (therapeutic) * aPTT 121-135.9 sec Subtract 2 units/kg/hr from current rate * aPTT 136-149.9 sec --------- Hold heparin for 1 hour and subtract 3 units/kg/hr from current rate * aPTT 150 sec or greater - Redraw STAT aPTT and hold heparin. Draw hourly aPTT using routine specified time until less than 150 sec, then restart heparin infusion at 3 units/kg/hr less than the previous rate, give NO BOLUS and resume every 6 hour aPTT. AFTER PROCEDURE: When restarting infusion after it's been held for a procedure, restart infusion at "starting" dose of 15 units/kg/hr and follow titration orders. IF infusion was running at less than 15 units/kg/hr prior to procedure, restart at that rate and follow titration orders., heparin (porcine) (5000 units/1 mL) IV Given 2:45 PM CDT 3,100 Units dose 3,100 Units 3,100 Units (rounded from 3,108 Units = 35 Units/kg 88.8 kg), IV, PRN per parameter, Starting Fri08/21/20 at 1345, Until Fri08/21/20 at 1712, other (Specify), * aPTT 60 to 69.9 seconds - Give 35 units/kg IV bolus and add 2 units/kg/hr to current rate of infusion, 1 mL, Supplemental bolus doses based on aPTT: * aPTT less than 60 seconds - Give 70 units/kg IV bolus and add 4 units/kg/hr to current rate of infusion. * aPTT 60 to 69.9 seconds - Give 35 units/kg IV bolus and add 2 units/kg/hr to current rate of infusion. Round to the nearest 100 units up to a maximum bolus of heparin 7500 units. , hydrocortisone sodium succinate Given 08/21/2020 4:56 PM CDT 10 0 mg (solu-CORTEF) preservative free injection 100 mg 100 mg, IV, One time, 1 dose, Fri08/21/20 at 1755, 2 mL, If diluent is not supplied (act-o-vial), dilute 100mg vial with 2mL of sterile water or 0.9% sodium chloride for final concentration of 50mg/mL., iohexol (OMNIPAQUE) 350 mg/mL solution 6 0 mL Given 08/21/2020 5:17 PM CDT 60 mL 60 mL, Intra-arterial, One time, 1 dose, Fri08/21/20 at 1720, 100 mL lidocaine PF (XYLOCAINE-MPF) 1 % preservative Given 4:57 PM CDT 3 mL free injection solution 0-40 mL 0-40 mL, Subcutaneous, Administer in Cardiac Directory Compiler, 1 dose, Fri08/21/20 at 1705, 40 mL, Given by provider in CCL. Do not give on the floor., midazolam (VERSED) injection solution 0.5-10 Given 5:00 PM CDT 2 mg mg 0.5-10 mg, IV, PRN per parameter, Starting Fri08/21/20 at 1611, Until Fri08/21/20 at 1724, other (Specify), sedation for cardiac catheterization, 10 mL, Pre-Procedure (Cath), procedural area to release, For sedation under direction provider privileged to perform sedation Do not give on the floor, sodium chloride 0.9% IV solution New Bag 08/21/2020 6:50 PM CDT 150 mL/hr IV, at 150 mL/hr, Continuous, Starting Fri08/21/20 at 1745, Until Fri08/21/20 at 1944, 1,000 mL, Post-Procedure (Cath) verapamil-hEParin in normal saline (radial Given 08/21/2020 4:5 7 PM CDT cocktail) Intra-arterial, Administer in Cardiac Directory Compiler, 1 dose, Fri08/21/20 at 1705, 10 mL, Under the direction of the provider in CCL. Do not give on the floor., documented in this encounter
== END 2020-08-21 12:15 ==
LOC: LL.ED 09:52
DX: I21.4 Non-ST elevation (NSTEMI) myocardial infarction (principal); I49.3 Ventricular premature depolarization; E78.5 Hyperlipidemia, unspecified; D53.9 Nutritional anemia, unspecified; F41.8 Other specified anxiety disorders; E03.9 Hypothyroidism, unspecified; E83.42 Hypomagnesemia; K27.9 Peptic ulcer, site unspecified, unspecified as acute or chronic, without hemorrhage or perforation; I10 Essential (primary) hypertension; M89.49 Other hypertrophic osteoarthropathy, multiple sites; E78.00 Pure hypercholesterolemia, unspecified; K21.9 Gastro-esophageal reflux disease without esophagitis; Z71.6 Tobacco abuse counseling; Z91.041 Radiographic dye allergy status; Z79.899 Other long term (current) drug therapy; Z20.822 Contact with and (suspected) exposure to COVID-19
CPT/HCPCS: 36415; 71045; 80053; 82550; 82553; 83605; 83735; 83880; 84443; 84484; 84550; 85025; 85379; 85610; 85730; 87635; 93005; 96365; 96368; 96375; 96376; 99285; A9270; J1644; J2270; J2405; J3360; J3490; J7120; 93010; U0002

== ENCOUNTER 2020-09-06 15:53 | Emergency (ER) | payer BC ==
[2020-09-06] MEDS ORDERED: Sodium Chloride 0.9% 10 ML Syringe FLUSH PRN (16:12)
[2020-09-06] MEDS ORDERED: Aspirin 81 MG Tab.Chew PO ONE (16:14)
--- NOTE | 2020-09-06 16:45 | EDM.PDOC ---
ED HPI GENERAL MEDICAL PROBLEM - General Chief Complaint: Cardiovascular Problem Stated Complaint: right arm pressure Time Seen by Provider: 09/06/20 15:57 Source of Information: Reports: Patient, Old Records, Provider History Limitations: Reports: No Limitations - History of Present Illness INITIAL COMMENTS - FREE TEXT/NARRATIVE: Pt. presents to ER at the request of Graciela Blackburn PA-C with complaints of R arm pain. Pt. was transferred from this facility on 08/21/2020 with NSTEMI. At that time, he was given nitro in this ER and dropped his blood pressure significantly. He was transferred emergently to [facility]. Pt. underwent heart catheterization and angiogram at that time. he was found to have 70% stenosis of 1st diagonal of LAD. The vessel was of small caliber, and not amenable to catheter based intervention. Cardiology suggested maximal medical therapy, including aggressive treatment of hypertension (increased amlodipine), ACEI, beta onel, and statin therapy. He remains on Brilinta. Pt. EDP during angio was elevated at 36. Echo showed EF 60%. Of note, distal circumflex was noted to have 20% stenosis. RCA, left main were negative for stenosis. Pt. did have elevated troponin that trended downward overnight. It appears he was discharged the next day. Pt. was experiencing arm pain when he was having the WI, but was also experiencing substernal chest pain and diaphoresis at that time as well, which he is not now. Pt. states that he has been experiencing intermittent R arm discomfort since he was discharged from [facility]. Pt. has a history of thoracic outlet disorder as well as R rotator cuff injury, for which he gets occasional steroid injections. Pt. states that when he is having the arm tightness, He denies any diaphoresis. No nausea or vomiting. Denies any shortness of breath or palpitations. - Related Data Allergies Allergy/AdvReac Type Severity Reaction Status Date / Time Iodinated Contrast Media Allergy Vomiting Verified 09/06/20 16:09 Home Meds: Home Meds Omeprazole [Prilosec] 20 mg PO DAILY 04/24/14 [History] QUEtiapine Fumarate [Quetiapine Fumarate] 300 mg PO BEDTIME 04/24/14 [History] Hydrocodone/Acetaminophen [Hydrocodone-Acetamin 7.5-325] 1 tab PO Q4HR PRN 08/21/20 [History] Levothyroxine Sodium [Synthroid] 1 tab PO BEDTIME 08/21/20 [History] atorvaSTATin [Lipitor] 1 tab PO BEDTIME 08/21/20 [History] lisinopriL [Lisinopril] 1 tab PO BEDTIME 08/21/20 [History] traMADol HCl [Tramadol HCl] 1 tab PO Q6HR PRN 08/21/20 [History] Past Medical History Cardiovascular History: Reports: Arrhythmia, High Cholesterol, Hypertension, Other (See Below) Other Cardiovascular History: Dyslipidemia. PVCs. Borderline incomplete right bundle branch block. Mild thoracic outlet syndrome on 01/25/1987. Respiratory History: Reports: Intubation, Previous, Pulmonary Fibrosis. Denies: Asthma, COPD, Intubation, Difficult Gastrointestinal History: Reports: Cholelithiasis, Chronic Constipation, Diverticulosis, GERD, Hepatitis, Helicobacter Pylori, PUD, Other (See Below). Denies: GI Bleed, Pancreatitis Other Gastrointestinal History: Peptic ulcer disease, GERD, and duodenitis with previously treated H. pylori infection after positive finding on 05/25/2002. Umbilical hernia. Moderate LFTs elevation and hyperbilirubinemia on 04/24/2014 with cholecystectomy as below. Genitourinary History: Reports: Hydronephrosis, Renal Calculus, Other (See Below) Other Genitourinary History: Benign bilateral nephrolithiasis including urolithiasis on the right side on 03/01/2002 and on the left side on 08/03/2015 with secondary moderate hydronephrosis. Spermatocele on 03/25/2002. Musculoskeletal History: Reports: Arthritis, Back Pain, Chronic, Fracture, Neck Pain, Chronic, Osteoarthritis, Other (See Below) Other Musculoskeletal History: C5-6 disc prolapse on 02/21/2006 with lumbar spinal fusion as below. Right hand fourth proximal distal phalangeal fracture on 04/20/1996. Right ankle/fibula fracture on 10/10/1989. Psychiatric History: Reports: Addiction, Anxiety, Depression, OCD, Suicidal Ideation, Other (See Below) Other Psychiatric History: Previous history of suicidal ideation with outpatient alcohol treatment. Chronic narcotic and Ultram use secondary to chronic pain syndrome from his neck and back pain. Endocrine/Metabolic History: Reports: Hypokalemia, Hypothyroidism, Other (See Below). Denies: Diabetes, Type I, Diabetes, Type II, Diabetes Mellitus, Type 3c, IDDM, Obesity/BMI 30+ Other Endocrine/Metabolic History: Borderline hyperglycemia. Bilateral gynecomastia since April 1990 with negative biopsies as below. Hematologic History: Reports: Anemia, Other (See Below) Other Hematologic History: Macrocytic anemia. - Infectious Disease History Infectious Disease History: Reports: Chicken Pox, Shingles (Right-sided herpes zoster ophthalmicus in July 2001.). Denies: Novel Coronavirus - Past Surgical History Respiratory Surgical History: Reports: Other (See Below) Other Respiratory Surgeries/Procedures: Transaxillary excision of the first right rib on 06/07/1987. GI Surgical History: Reports: Appendectomy, Cholecystectomy, EGD, Other (See Below) Other GI Surgeries/Procedures: Laparoscopic cholecystectomy in 2013. EGD on 11/13/1999 and 09/03/1994. Appendectomy in April 1999, although the patient denied this on 04/25/2002. Hemorrhoidectomy in 1987 and 08/21/2006. Male Surgical History: Reports: Renal Calculus, Ureteral Stent, Vasectomy, Other (See Below) Other Male Surgeries/Procedures: Multiple bilateral ureteral stone extractio ns including on the right side on 03/01/2002. Vasectomy in August 1996. Left breast biopsy for benign disease on 05/13/1990 and right breast in July 2006. Neurological Surgical History: Reports: Discectomy, Laminectomy, Lumbar Spine, Spinal Fusion, Other (See Below). Denies: C-Spine, Sacral Spine, Thoracic Spine, Vertebroplasty Other Neurological Surgeries/Procedures: Spinal fusion (ASF/PSF) of L2-L5 on 08/12/2006. Musculoskeletal Surgical History: Reports: ORIF, Other (See Below) Other Musculoskeletal Surgeries/Procedures:: ORIF of the right fibular/ankle fracture in October 11, 1989. ORIF of right fourth finger fracture on 04/20/1996. - Past Imaging History Past Imaging History: Reports: Angiography (08/22/2003.), CAT Scan (CT/arthrogram of the right shoulder and on 04/13/1991. CT of the abdomen and pelvis with contrast on 06/07/2009. CT of the abdomen and pelvis with stone protocol on 03/10/2015 and 10/03/2010.), HIDA Scan (08/11/2006), MRI (MRI of the right shoulder on 03/17/1991. MRI of the lumbar, sacral, and thoracic spines on 03/06/2006. MRI of the lumbar spine on 07/01/2016. MRI of the C-spine on 02/21/2006.), Stress Testing (Dobutamine Cardiolite stress test on 07/24/2006. Cardiolite stress test on 08/11/2003.), Ultrasound (Renal ultrasound on 08/03/2015, 02/22/2015 and 07/23/2011. Gallbladder ultrasound on 04/27/2014, 05/03/2009, and 08/11/1996.), Upper GI X-Ray/Series (01/23/1996) Social & Family History - Family History Cardiac: Reports: Arrhythmia, Bypass, CAD, Hypertension, WI, Other (See Below) Other Cardiac Family History: Father with fatal WI at age 48. Brother with WI in his 40s with CABG required. Another brother with a congenital septal defect with no surgery conducted. Paternal uncles x4 with MIs in their 60s 2 of them fatal in nature. Paternal aunt x4 with WI in their 70s 1 fatal nature. Brother with fatal WI at age 51. Another brother with WPW. Hypertension in mother, father, sister, and brothers x5. Respiratory: Reports: Asthma, Other (See Below) Other Respiratory Family Hisory: Brother with asthma. GI: Reports: Cholelithiasis, Other (See Below) Other GI Family History: Brother with cholelithiasis. : Reports: Renal Calculus, Other (See Below) Other Family History: Urolithiasis and brothers x2. Neurological: Reports: Other (See Below) Other Neurological Family History: Brother with mental deficit/mild mental retardation. Endocrine/Metabolic: Reports: Diabetes, Type I, Diabetes, type II, Hypothyroidism, IDDM, Obesity/MBI 30+, Other (See Below) Other Endocrine/Metabolic Family History: Brother with obesity. Brother with AODM. Mother with IDDM. Maternal niece with type I IDDM. Hypothyroidism in mother, sister, and brothers x4. Oncologic: Reports: Hodgkin's Lymphoma, Other (See Below) Other Oncologic Family History: Brother with Hodgkin's disease in his 30s. - Living Situation & Occupation Living situation: Reports: (07/08/2006, 2 children), with Family (Brother with mental deficit) Occupation: Employed ([employer]) ED ROS GENERAL - Review of Systems Review Of Systems: See Below Constitutional: Reports: No Symptoms HEENT: Reports: No Symptoms Respiratory: Reports: No Symptoms Cardiovascular: Reports: Other (See HPI) Endocrine: Reports: No Symptoms GI/Abdominal: Reports: No Symptoms : Reports: No Symptoms Musculoskeletal: Reports: Other (See HPI) Skin: Reports: No Symptoms Neurological: Reports: No Symptoms Hematologic/Lymphatic: Reports: No Symptoms Immunologic: Reports: No Symptoms ED EXAM, GENERAL - Physical Exam Exam: See Below Exam Limited By: No Limitations General Appearance: Alert, WD/WN, No Apparent Distress Neck: Normal Inspection, Supple, Non-Tender, Full Range of Motion Respiratory/Chest: No Respiratory Distress, Lungs Clear, Normal Breath Sounds, No Accessory Muscle Use, Chest Non-Tender Cardiovascular: Normal Peripheral Pulses, Regular Rate, Rhythm, No Edema, No JVD, No Murmur Peripheral Pulses: 4+: Radial (L), Radial (R) GI/Abdominal: Soft, Non-Tender, No Distention, No Mass (Male) Exam: Deferred Rectal (Males) Exam: Deferred Back Exam: Normal Inspection, Full Range of Motion Extremities: Normal Inspection, Normal Range of Motion, Non-Tender, No Pedal Edema, Normal Capillary Refill Neurological: Alert, Oriented, CN II-XII Intact, Normal Cognition, No Motor/Sensory Deficits Psychiatric: Normal Affect, Normal Mood Skin Exam: Warm, Dry, Intact, Normal Color Lymphatic: No Adenopathy Course - Vital Signs Last Recorded V/S: Last Vital Signs Temp 36.9 C 09/06/20 16:00 Pulse 66 09/06/20 16:00 Resp 17 09/06/20 16:00 BP 163/99 H 09/06/20 16:00 Pulse Ox 100 09/06/20 16:00 - Orders/Labs/Meds Orders: Active Orders 24 hr Category Date Time Status EKG Documentation Completion [RC] ASDIRECTED Care 09/06/20 16:09 Active Peripheral IV Care [RC] . DIRECTED Care 09/06/20 16:13 Active Sodium Chloride 0.9% [Saline Flush] Med 09/06/20 16:12 Active 10 ml FLUSH ASDIRECTED PRN Peripheral IV Insertion Adult [OM.PC] Routine Oth 09/06/20 16:13 Ordered Medication Orders Sodium Chloride (Sodium Chloride 0.9% 10 Ml Syringe) 10 ml FLUSH ASDIRECTED PRN PRN Reason: Keep Vein Open Labs: Laboratory Tests 09/06/20 09/06/20 09/06/20 Range/Units 16:25 16:25 16:25 WBC 6.5 (4.0-10.2) K/uL RBC 3.64 L (4.33-5.41) M/uL Hgb 12.9 L (13.1-16.8) g/dL Hct 37.0 L (39.0-49.0) % MCV 101.6 H (84.0-98.0) fL MCH 35.4 H (28.2-33.3) pg MCHC 34.9 (31.7-36.0) g/dL RDW 12.7 (11.2-14.1) % Plt Count 243 (150-350) K/uL Neut % (Auto) 40.7 L (45.0-80.0) % Lymph % (Auto) 46.2 (10.0-50.0) % [place] % (Auto) 7.1 (2.0-14.0) % Eos % (Auto) 5.2 H (0.0-5.0) % Baso % (Auto) 0.8 (0.0-2.0) % Neut # (Auto) 2.66 (1.40-7.00) K/uL Lymph # (Auto) 3.01 (0.50-3.50) K/uL [place] # (Auto) 0.46 (0.00-1.00) K/uL Eos # (Auto) 0.34 (0.00-0.50) K/uL Baso # (Auto) 0.05 (0.00-0.20) K/uL PT 9.4 L (9.5-12.0) SEC INR 0.9 APTT (24.5-32.8) SEC Sodium 140 (136-145) mmol/L Potassium 3.8 (3.5-5.1) mmol/L Chloride 103 (98-107) mmol/L Carbon Dioxide 26.3 (21.0-32.0) mmol/L BUN 15 (7-18) mg/dL Creatinine 0.95 (0.51-1.17) mg/dL Est Cr Clr Drug Dosing TNP Estimated GFR (MDRD) > 60 mL/min Glucose 98 (70-99) mg/dL Calcium 8.8 (8.5-10.1) mg/dL Magnesium 1.9 (1.8-2.4) mg/dL Total Bilirubin 0.2 (0.2-1.0) mg/dL AST 20 (15-37) U/L ALT 29 (12-78) U/L Alkaline Phosphatase 73 (46-116) IU/L Creatine Kinase 133 (26-308) U/L Creatine Kinase Index 1.3 (0.0-2.5) % CK-MB (CK-2) 1.70 (0.00-3.60) ng/mL Troponin I 0.000 (0.000-0.056) ng/mL NT-Pro-B Natriuret Pep 108 (0-125) pg/mL Total Protein 7.2 (6.4-8.2) g/dL Albumin 3.9 (3.4-5.0) g/dL 09/06/20 Range/Units 16:25 WBC (4.0-10.2) K/uL RBC (4.33-5.41) M/uL Hgb (13.1-16.8) g/dL Hct (39.0-49.0) % MCV (84.0-98.0) fL MCH (28.2-33.3) pg MCHC (31.7-36.0) g/dL RDW (11.2-14.1) % Plt Count (150-350) K/uL Neut % (Auto) (45.0-80.0) % Lymph % (Auto) (10.0-50.0) % [place] % (Auto) (2.0-14.0) % Eos % (Auto) (0.0-5.0) % Baso % (Auto) (0.0-2.0) % Neut # (Auto) (1.40-7.00) K/uL Lymph # (Auto) (0.50-3.50) K/uL [place] # (Auto) (0.00-1.00) K/uL Eos # (Auto) (0.00-0.50) K/uL Baso # (Auto) (0.00-0.20) K/uL PT (9.5-12.0) SEC INR APTT 24.5 (24.5-32.8) SEC Sodium (136-145) mmol/L Potassium (3.5-5.1) mmol/L Chloride (98-107) mmol/L Carbon Dioxide (21.0-32.0) mmol/L BUN (7-18) mg/dL Creatinine (0.51-1.17) mg/dL Est Cr Clr Drug Dosing Estimated GFR (MDRD) mL/min Glucose (70-99) mg/dL Calcium (8.5-10.1) mg/dL Magnesium (1.8-2.4) mg/dL Total Bilirubin (0.2-1.0) mg/dL AST (15-37) U/L ALT (12-78) U/L Alkaline Phosphatase (46-116) IU/L Creatine Kinase (26-308) U/L Creatine Kinase Index (0.0-2.5) % CK-MB (CK-2) (0.00-3.60) ng/mL Troponin I (0.000-0.056) ng/mL NT-Pro-B Natriuret Pep (0-125) pg/mL Total Protein (6.4-8.2) g/dL Albumin (3.4-5.0) g/dL Meds: Medications Generic Name Dose Route Start Last Admin Trade Name Freq PRN Reason Stop Dose Admin Sodium Chloride 10 ml 09/06/20 16:12 Sodium Chloride 0.9% 10 Ml Syringe FLUSH ASDIRECTED PRN Keep Vein Open Discontinued Medications Generic Name Dose Route Start Last Admin Trade Name Freq PRN Reason Stop Dose Admin Aspirin 324 mg 09/06/20 16:14 09/06/20 16:27 Aspirin 81 Mg Tab.Chew PO 09/06/20 16:15 324 mg ONETIME ONE Administration Departure - Departure Time of Disposition: 17:21 Disposition: Home, Self-Care 01 Clinical Impression: Arm pain Referrals: Jennifer Blackubrn PA-C [Primary Care Provider] - Forms: ED Department Discharge Additional Instructions: Continue with current medications. Return to ER if you have any chest pain, shortness of breath, lightheadedness, or palpitations. Follow-up with Jennifer as planned. Return of call if you have any questions. Sepsis Event Note (ED) - Focused Exam Vital Signs: Vital Signs Temp Pulse Resp BP Pulse Ox 09/06/20 16:00 36.9 C 66 17 163/99 H 100 - Problem List Review Problem List Initiated/Reviewed/Updated: Yes - My Orders Last 24 Hours: My Active Orders 09/06/20 16:09 EKG Documentation Completion [RC] ASDIRECTED 09/06/20 16:12 Sodium Chloride 0.9% [Saline Flush] 10 ml FLUSH ASDIRECTED PRN 09/06/20 16:13 Peripheral IV Care [RC] . DIRECTED Peripheral IV Insertion Adult [OM.PC] Routine - Assessment/Plan Last 24 Hours: My Active Orders 09/06/20 16:09 EKG Documentation Completion [RC] ASDIRECTED 09/06/20 16:12 Sodium Chloride 0.9% [Saline Flush] 10 ml FLUSH ASDIRECTED PRN 09/06/20 16:13 Peripheral IV Care [RC] . DIRECTED Peripheral IV Insertion Adult [OM.PC] Routine Plan: EKG was normal. Troponin was negative. This was discussed with the patient. He was offered admission for trending of troponin and EKG but adamantly refuses at this time. Pt. was urged to return to ER if he has any chest pain, shortness, diaphoresis, or lightheadedness. He was urged to quit smoking. Recheck in clinic in 7-10 days.
[2020-09-06 16:54] LABS: CHLORIDE,CL 103 mmol/L (98-107); SODIUM,NA 140 mmol/L (136-145)
== END 2020-09-06 17:20 | disposition home or self-care (01) ==
LOC: LL.ED 15:53
DX: M79.601 Pain in right arm (principal); E78.5 Hyperlipidemia, unspecified; I10 Essential (primary) hypertension; Z79.899 Other long term (current) drug therapy; K21.9 Gastro-esophageal reflux disease without esophagitis
CPT/HCPCS: 36415; 80053; 82550; 82553; 83735; 83880; 84484; 85025; 85610; 85730; 93005; 99283; A9270